=== PATIENT | male | born 1975 | race Caucasian/White ===

== ENCOUNTER 2022-01-23 15:09 | Inpatient (IN) ==
[2022-01-23 16:08] LABS: Basophils % 0.3 %; Eosinophils % 0.1 %; Hematocrit 32.3 % (37.5-50.1); Hemoglobin 10.9 g/dL (12.9-16.9); Immature Granulocytes % 1.3 % (0-4); Lymphocytes # 0.8 K/mcL (0.6-4.6); Lymphocytes % 5.4 %; Mean Corpuscular HGB Conc 33.7 g/dL (31.6-35.5); Mean Corpuscular Hemoglobin 30.5 pg (28.0-33.3); Mean Corpuscular Volume 90.5 fL (83.0-100.0); Mean Platelet Volume 8.5 fL (9.4-12.4); Monocytes # 0.8 K/mcL (0.0-1.3); Monocytes % 5.5 %; Neutrophils # 13.4 K/mcL (1.6-8.9); Platelet Count 325 K/mcL (140-400); Red Blood Count 3.57 M/mcL (4.19-5.50); Red Cell Distribution Width 13.2 % (11.5-14.5); Segmented Neutrophils % 87.4 %; White Blood Count 15.3 K/mcL (4.3-11.1)
[2022-01-23 16:31] LABS: BUN/Creatinine Ratio 18 (6-26); Blood Urea Nitrogen 23 mg/dL (6-20); C-Reactive Protein 113 mg/L (Less than 10); Calcium 8.8 mg/dL (8.6-10.3); Carbon Dioxide 24 mEq/L (23-29); Chloride 92 mEq/L (98-107); Glucose 102 mg/dL (70-105); Osmolality,Calculated 266 (280-300); Potassium 3.8 mEq/L (3.5-5.1); Sodium 126 mEq/L (136-145); eGFR For African Americans > 60 (> 60); eGFR For Non-African Americans > 60 (> 60)
[2022-01-23] MEDS ORDERED: Piperacillin/Tazobactam 3.375 GM in 0.9 % Sodium Chloride Mini Bag 100 ML IVPB ONE (18:01)
[2022-01-23] MEDS: 0.9 % Sodium Chloride 1,000 ML IVC SCH ×2 (18:14→22:09)
[2022-01-23 18:23] LABS: Alanine Aminotransferase 6 Units/L (7-52); Albumin 2.8 g/dL (3.5-5.7); Albumin/Globulin Ratio 0.5 (1.1-2.2); Alkaline Phosphatase 75 Units/L (34-104); Aspartate Amino Transferase 18 Units/L (13-39); Bilirubin,Direct 0.5 mg/dL (0.0-0.2); Bilirubin,Indirect 0.6 mg/dL (0.0-1.0); Bilirubin,Total 1.1 mg/dL (0.3-1.0); Globulin 5.6 g/dL (2.4-3.5); Lipase 14 Units/L (11-82); Total Protein 8.4 g/dL (6.4-8.9); Troponin I < 0.03 ng/mL (< 0.04)
[2022-01-23 18:33] LABS: Bilirubin,Urine Negative (Negative); Blood,Urine Large (Negative); Clarity,Urine Ex.Turbid (Clear); Color,Urine Dark-Yellow (Yellow); Glucose,Urine (UA) Normal (Normal); Granular Casts,Urine Moderate per lpf (None Seen); Ketones,Urine Trace mg/dL (Negative); Leukocyte Esterase,Urine Small (Negative); Mucus,Urine Few per lpf (None-Few); Nitrite,Urine Negative (Negative); Protein,Urine 70 mg/dL (Neg-Trace); Specific Gravity,Urine 1.018 (1.010-1.025); Squamous Epithelial Cell,Urine Few per hpf (None-Few); WBC,Urine 30-50 per hpf (0-3)
[2022-01-23 18:44] LABS: Amphetamine Screen,Urine Negative ng/mL (Cutoff=1000); Barbiturate Screen,Urine Negative ng/mL (Cutoff=200); Benzodiazepines Screen,Urine Negative ng/mL (Cutoff=200); Cannabinoid Screen,Urine Positive ng/mL (Cutoff = 50); Cocaine Screen,Urine Negative ng/mL (Cutoff= 300); Opiate Screen,Urine Negative ng/mL (Cutoff=300); Phencyclidine Screen,Urine Negative ng/mL (Cutoff=25)
[2022-01-23 18:46] LABS: Influenza A PCR Negative (Negative); Influenza B PCR Negative (Negative); Resp. Syncytial Virus PCR Negative (Negative); SARS-CoV-2 by PCR (In House) Negative (Negative)
[2022-01-23] MEDS ORDERED: Vancomycin 1,250 MG/262.5 ML IV.SOLN IVPB ONE (19:00)
[2022-01-23] MEDS ORDERED: Naloxone 0.4 MG/ML INJ IVP PRN (20:56)
[2022-01-23 21:45] LABS: BUN/Creatinine Ratio 18 (6-26); Blood Urea Nitrogen 23 mg/dL (6-20); Calcium 7.7 mg/dL (8.6-10.3); Carbon Dioxide 22 mEq/L (23-29); Chloride 97 mEq/L (98-107); Glucose 103 mg/dL (70-105); Osmolality,Calculated 268 (280-300); Potassium 3.8 mEq/L (3.5-5.1); Sodium 127 mEq/L (136-145); eGFR For African Americans > 60 (> 60); eGFR For Non-African Americans > 60 (> 60)
[2022-01-23] MEDS: Nicotine 21 MG PATCH.TD24 TD SCH (22:09)
[2022-01-24 03:22] LABS: Basophils % 0.3 %; Eosinophils % 0.4 %; Immature Granulocytes % 0.8 % (0-4); Lymphocytes # 1.1 K/mcL (0.6-4.6); Lymphocytes % 10.9 %; Mean Corpuscular Hemoglobin 30.5 pg (28.0-33.3); Mean Corpuscular Volume 92.5 fL (83.0-100.0); Mean Platelet Volume 8.8 fL (9.4-12.4); Monocytes # 0.6 K/mcL (0.0-1.3); Monocytes % 6.2 %; Neutrophils # 8.1 K/mcL (1.6-8.9); Platelet Count 252 K/mcL (140-400); Red Blood Count 2.92 M/mcL (4.19-5.50); Red Cell Distribution Width 13.2 % (11.5-14.5); Segmented Neutrophils % 81.4 %
[2022-01-24 03:37] LABS: Hemoglobin 8.9 g/dL (12.9-16.9)
[2022-01-24 03:41] LABS: Alanine Aminotransferase 5 Units/L (7-52); Albumin 1.9 g/dL (3.5-5.7); Alkaline Phosphatase 48 Units/L (34-104); Aspartate Amino Transferase 12 Units/L (13-39); BUN/Creatinine Ratio 20 (6-26); Bilirubin,Total 0.8 mg/dL (0.3-1.0); Blood Urea Nitrogen 21 mg/dL (6-20); Calcium 6.5 mg/dL (8.6-10.3); Carbon Dioxide 22 mEq/L (23-29); Chloride 107 mEq/L (98-107); Glucose 86 mg/dL (70-105); Magnesium 1.7 mg/dL (1.6-2.6); Osmolality,Calculated 280 (280-300); Potassium 3.1 mEq/L (3.5-5.1); Sodium 134 mEq/L (136-145); Total Protein 5.7 g/dL (6.4-8.9); eGFR For African Americans > 60 (> 60); eGFR For Non-African Americans > 60 (> 60)
[2022-01-24 03:42] LABS: Albumin/Globulin Ratio 0.5 (1.1-2.2); Globulin 3.8 g/dL (2.4-3.5)
[2022-01-24] MEDS: Piperacillin/Tazobactam 3.375 GM in 0.9 % Sodium Chloride Mini Bag 100 ML IVPB SCH ×3 (04:20→21:44)
[2022-01-24 05:39] LABS: Enterococcus faecalis by PCR Not Detected (Not Detect); Enterococcus faecium by PCR Not Detected (Not Detect); Staphylococcus aureus by PCR DETECTED (Not Detect); mecA/C & MREJ (MRSA) Gene Not Detected (Not Detect)
[2022-01-24 05:40] LABS: A.calcoaceticus-baumannii cplx Not Detected (Not Detect); Bacteroides fragilis by PCR Not Detected (Not Detect); Candida albicans by PCR Not Detected (Not Detect); Candida auris by PCR Not Detected (Not Detect); Candida glabrata by PCR Not Detected (Not Detect); Candida krusei by PCR Not Detected (Not Detect); Candida parapsilosis by PCR Not Detected (Not Detect); Candida tropicalis by PCR Not Detected (Not Detect); Crypto. neoformans/gattii PCR Not Detected (Not Detect); Enterobacter cloacae Cmplx PCR Not Detected (Not Detect); Enterobacterales by PCR Not Detected (Not Detect); Escherichia coli by PCR Not Detected (Not Detect); Klebs. pneumoniae group by PCR Not Detected (Not Detect); Klebsiella aerogenes by PCR Not Detected (Not Detect); Klebsiella oxytoca by PCR Not Detected (Not Detect); Proteus by PCR Not Detected (Not Detect); Pseudomonas aeruginosa by PCR Not Detected (Not Detect); Salmonella species by PCR Not Detected (Not Detect); Serratia marcescens by PCR Not Detected (Not Detect); Staph epidermidis by PCR Not Detected (Not Detect); Staph lugdunensis by PCR Not Detected (Not Detect); Stenotrophomonas maltophilia Not Detected (Not Detect); Streptococcus agalactiae(B)PCR Not Detected (Not Detect); Streptococcus by PCR Not Detected (Not Detect); Streptococcus pneumoniae PCR Not Detected (Not Detect); Streptococcus pyogenes (A) PCR Not Detected (Not Detect)
[2022-01-24] MEDS: Vancomycin 1,500 MG/265 ML IV.SOLN IVPB SCH ×2 (05:50→17:36)
[2022-01-24 06:12] LABS: Hepatitis B Surface Antigen Nonreactive (Nonreactive)
[2022-01-24 06:42] LABS: Hepatitis A Antibody IgM Nonreactive (Nonreactive); Hepatitis B Core IgM Nonreactive (Nonreactive)
[2022-01-24] MEDS: Nicotine 21 MG PATCH.TD24 TD SCH (07:39)
[2022-01-24] MEDS: 0.9 % Sodium Chloride 1,000 ML IVC SCH (08:20)
[2022-01-24 08:33] LABS: Hematocrit 24.8 % (37.5-50.1); Hemoglobin 8.2 g/dL (12.9-16.9)
[2022-01-24 08:38] LABS: Hepatitis C Virus Antibody Reactive (Nonreactive)
[2022-01-24 08:57] LABS: BUN/Creatinine Ratio 18 (6-26); Blood Urea Nitrogen 22 mg/dL (6-20); Calcium 7.7 mg/dL (8.6-10.3); Carbon Dioxide 25 mEq/L (23-29); Chloride 103 mEq/L (98-107); Glucose 92 mg/dL (70-105); Osmolality,Calculated 279 (280-300); Potassium 3.4 mEq/L (3.5-5.1); Sodium 133 mEq/L (136-145); eGFR For African Americans > 60 (> 60); eGFR For Non-African Americans > 60 (> 60)
[2022-01-24 15:32] LABS: Procalcitonin 1.04 ng/mL (0.00-0.15)
[2022-01-24] MEDS ORDERED: Prochlorperazine 10 MG/2 ML VIAL IVP PRN (22:20)
[2022-01-25 05:25] LABS: Basophils % 0.4 %; Eosinophils # 0.2 K/mcL (0.0-0.6); Eosinophils % 1.9 %; Hemoglobin 7.4 g/dL (12.9-16.9); Immature Granulocytes % 1.3 % (0-4); Lymphocytes # 1.7 K/mcL (0.6-4.6); Lymphocytes % 20.1 %; Mean Corpuscular HGB Conc 32.2 g/dL (31.6-35.5); Mean Corpuscular Hemoglobin 30.3 pg (28.0-33.3); Mean Corpuscular Volume 94.3 fL (83.0-100.0); Mean Platelet Volume 8.8 fL (9.4-12.4); Monocytes # 0.8 K/mcL (0.0-1.3); Monocytes % 9.2 %; Neutrophils # 5.6 K/mcL (1.6-8.9); Platelet Count 230 K/mcL (140-400); Red Blood Count 2.44 M/mcL (4.19-5.50); Red Cell Distribution Width 13.5 % (11.5-14.5); Segmented Neutrophils % 67.1 %; White Blood Count 8.4 K/mcL (4.3-11.1)
[2022-01-25] MEDS: Piperacillin/Tazobactam 3.375 GM in 0.9 % Sodium Chloride Mini Bag 100 ML IVPB SCH (05:50)
[2022-01-25] MEDS: Vancomycin 1,500 MG/265 ML IV.SOLN IVPB SCH (06:19)
[2022-01-25] MEDS: Nicotine 21 MG PATCH.TD24 TD SCH (08:29)
[2022-01-25 08:43] LABS: BUN/Creatinine Ratio 13 (6-26); Blood Urea Nitrogen 17 mg/dL (6-20); Calcium 7.6 mg/dL (8.6-10.3); Carbon Dioxide 24 mEq/L (23-29); Chloride 106 mEq/L (98-107); Glucose 94 mg/dL (70-105); Magnesium 1.9 mg/dL (1.6-2.6); Osmolality,Calculated 279 (280-300); Phosphorous 3.5 mg/dL (2.7-4.5); Sodium 134 mEq/L (136-145); eGFR For African Americans > 60 (> 60); eGFR For Non-African Americans 60 (> 60)
[2022-01-25] MEDS ORDERED: levoFLOXacin 500 MG/100 ML 500 MG/100 ML BAG IVPB SCH (10:00)
[2022-01-25 10:29] LABS: Hematocrit 22.3 % (37.5-50.1); Hemoglobin 7.3 g/dL (12.9-16.9)
[2022-01-25 10:50] LABS: % Iron Saturation 37 % (20-55); Iron 51 mcg/dL (65-175); Rheumatoid Factor < 10 IU/mL (Less than 14); Transferrin 98 mg/dL (203-362)
[2022-01-25 11:07] LABS: Ferritin 438 ng/mL (20-250)
[2022-01-25 11:13] LABS: Folate 9.7 ng/mL (3.0-16.0)
[2022-01-25 11:14] LABS: Vitamin B12 684 pg/mL (250-1100)
[2022-01-25] MEDS ORDERED: *HR* FentaNYL (PF) 100 MCG/2 ML VIAL ONE (13:21)
[2022-01-25] MEDS ORDERED: Ondansetron 4 MG/2 ML VIAL ONE (13:22)
[2022-01-25] MEDS ORDERED: Lidocaine -MPF 2% 5 ML VIAL ONE (13:22)
[2022-01-25] MEDS ORDERED: *HR* Midazolam HCl 2 MG/2 ML VIAL ONE (13:52)
[2022-01-25] MEDS: CeFAZolin 2,000 MG/120 ML BAG IVPB SCH (16:00)
[2022-01-26] MEDS: CeFAZolin 2,000 MG/120 ML BAG IVPB SCH ×3 (00:09→16:49)
[2022-01-26] MEDS: Acetaminophen 325 MG TABLET PO PRN (00:40)
[2022-01-26 03:57] LABS: Basophils % 0.3 %; Eosinophils # 0.3 K/mcL (0.0-0.6); Eosinophils % 3.7 %; Hematocrit 23.2 % (37.5-50.1); Hemoglobin 7.3 g/dL (12.9-16.9); Immature Granulocytes % 0.9 % (0-4); Lymphocytes # 1.8 K/mcL (0.6-4.6); Lymphocytes % 25.7 %; Mean Corpuscular HGB Conc 31.5 g/dL (31.6-35.5); Mean Corpuscular Volume 95.5 fL (83.0-100.0); Mean Platelet Volume 8.7 fL (9.4-12.4); Monocytes # 0.5 K/mcL (0.0-1.3); Monocytes % 7.3 %; Neutrophils # 4.4 K/mcL (1.6-8.9); Platelet Count 230 K/mcL (140-400); Red Blood Count 2.43 M/mcL (4.19-5.50); Red Cell Distribution Width 13.7 % (11.5-14.5); Segmented Neutrophils % 62.1 %
[2022-01-26 04:01] LABS: BUN/Creatinine Ratio 9 (6-26); Blood Urea Nitrogen 11 mg/dL (6-20); Calcium 7.8 mg/dL (8.6-10.3); Carbon Dioxide 25 mEq/L (23-29); Chloride 105 mEq/L (98-107); Glucose 92 mg/dL (70-105); Magnesium 1.9 mg/dL (1.6-2.6); Osmolality,Calculated 275 (280-300); Phosphorous 3.5 mg/dL (2.7-4.5); Potassium 4.3 mEq/L (3.5-5.1); Sodium 133 mEq/L (136-145); eGFR For African Americans > 60 (> 60); eGFR For Non-African Americans > 60 (> 60)
[2022-01-26] MEDS ORDERED: Perflutren Lipid Microsphere 1.3 ML in 0.9 % Sodium Chloride 8.7 ML IVP PRN (09:14)
[2022-01-26] MEDS ORDERED: *HR* LORazepam 2 MG/ML VIAL IVP ONE (10:25)
[2022-01-26] MEDS: Ondansetron 4 MG/2 ML VIAL IVP PRN (10:29)
[2022-01-26] MEDS: Nicotine 21 MG PATCH.TD24 TD SCH (10:31)
[2022-01-26] MEDS: cloNIDine HCL 0.1 MG TABLET PO SCH ×2 (10:36→20:45)
[2022-01-26] MEDS: 0.9 % Sodium Chloride 1,000 ML IVC SCH (12:35)
[2022-01-26 16:37] LABS: Amphetamine Screen,Urine Negative ng/mL (Cutoff=1000); Barbiturate Screen,Urine Negative ng/mL (Cutoff=200); Benzodiazepines Screen,Urine Positive ng/mL (Cutoff=200); Cannabinoid Screen,Urine Positive ng/mL (Cutoff = 50); Cocaine Screen,Urine Negative ng/mL (Cutoff= 300); Opiate Screen,Urine Negative ng/mL (Cutoff=300); Phencyclidine Screen,Urine Negative ng/mL (Cutoff=25)
[2022-01-27] MEDS: CeFAZolin 2,000 MG/120 ML BAG IVPB SCH ×4 (00:30→23:11)
[2022-01-27] MEDS: cloNIDine HCL 0.1 MG TABLET PO SCH ×2 (09:40→21:16)
[2022-01-27] MEDS: Nicotine 21 MG PATCH.TD24 TD SCH (09:41)
[2022-01-27] MEDS ORDERED: Famotidine 20 MG TABLET PO PRN (15:42)
[2022-01-28] MEDS: *HR* Enoxaparin 40 MG/0.4 ML SYRINGE SQ SCH (05:19)
[2022-01-28] MEDS: Nicotine 21 MG PATCH.TD24 TD SCH (08:14)
[2022-01-28] MEDS: polyethylene glycoL 3350 17 GM POWD.PACK PO SCH (08:14)
[2022-01-28] MEDS: cloNIDine HCL 0.1 MG TABLET PO SCH ×2 (08:14→20:05)
[2022-01-28] MEDS: Sennosides/Docusate Sodium TABLET PO SCH ×2 (08:14→20:04)
[2022-01-28] MEDS: CeFAZolin 2,000 MG/120 ML BAG IVPB SCH ×2 (08:15→15:51)
[2022-01-28] MEDS: Ondansetron 4 MG/2 ML VIAL IVP PRN (16:27)
[2022-01-29] MEDS: Ondansetron 4 MG/2 ML VIAL IVP PRN ×2 (04:37→23:42)
[2022-01-29] MEDS: *HR* Enoxaparin 40 MG/0.4 ML SYRINGE SQ SCH (05:16)
[2022-01-29] MEDS: Nicotine 21 MG PATCH.TD24 TD SCH (08:29)
[2022-01-29] MEDS: CeFAZolin 2,000 MG/120 ML BAG IVPB SCH ×3 (08:29→16:27)
[2022-01-29] MEDS: cloNIDine HCL 0.1 MG TABLET PO SCH ×2 (08:30→21:47)
[2022-01-29] MEDS: Sennosides/Docusate Sodium TABLET PO SCH ×2 (08:31→21:47)
[2022-01-29] MEDS: polyethylene glycoL 3350 17 GM POWD.PACK PO SCH (08:31)
[2022-01-29 10:07] LABS: Hematocrit 23.6 % (37.5-50.1); Hemoglobin 7.6 g/dL (12.9-16.9); Mean Corpuscular HGB Conc 32.2 g/dL (31.6-35.5); Mean Corpuscular Hemoglobin 29.8 pg (28.0-33.3); Mean Corpuscular Volume 92.5 fL (83.0-100.0); Mean Platelet Volume 8.6 fL (9.4-12.4); Platelet Count 289 K/mcL (140-400); Red Blood Count 2.55 M/mcL (4.19-5.50); Red Cell Distribution Width 13.6 % (11.5-14.5); White Blood Count 11.1 K/mcL (4.3-11.1)
[2022-01-29 10:26] LABS: BUN/Creatinine Ratio 9 (6-26); Blood Urea Nitrogen 11 mg/dL (6-20); Carbon Dioxide 24 mEq/L (23-29); Chloride 105 mEq/L (98-107); Glucose 82 mg/dL (70-105); Osmolality,Calculated 278 (280-300); Potassium 3.7 mEq/L (3.5-5.1); Sodium 135 mEq/L (136-145); eGFR For African Americans > 60 (> 60); eGFR For Non-African Americans > 60 (> 60)
[2022-01-29] MEDS: Melatonin 3 MG TABLET PO PRN (21:48)
[2022-01-30] MEDS ORDERED: Prochlorperazine 10 MG/2 ML VIAL IVP ONE (00:08)
[2022-01-30] MEDS: CeFAZolin 2,000 MG/120 ML BAG IVPB SCH ×4 (00:31→23:32)
[2022-01-30] MEDS ORDERED: traZODone 50 MG TABLET PO ONE (02:40)
[2022-01-30] MEDS: *HR* Enoxaparin 40 MG/0.4 ML SYRINGE SQ SCH (05:06)
[2022-01-30] MEDS: polyethylene glycoL 3350 17 GM POWD.PACK PO SCH (08:05)
[2022-01-30] MEDS: Sennosides/Docusate Sodium TABLET PO SCH ×2 (08:05→20:03)
[2022-01-30] MEDS: Nicotine 21 MG PATCH.TD24 TD SCH (08:08)
[2022-01-30] MEDS: cloNIDine HCL 0.1 MG TABLET PO SCH ×3 (08:08→20:03)
[2022-01-30] MEDS: Acetaminophen 325 MG TABLET PO PRN (12:16)
[2022-01-30] MEDS: Melatonin 3 MG TABLET PO PRN (23:35)
[2022-01-30] MEDS: Ondansetron 4 MG/2 ML VIAL IVP PRN (23:36)
[2022-01-31] MEDS ORDERED: Prochlorperazine 10 MG/2 ML VIAL IVP ONE (02:48)
[2022-01-31] MEDS ORDERED: *HR* LORazepam 2 MG/ML VIAL IVP ONE (04:51)
[2022-01-31] MEDS: *HR* Enoxaparin 40 MG/0.4 ML SYRINGE SQ SCH (06:06)
[2022-01-31] MEDS: CeFAZolin 2,000 MG/120 ML BAG IVPB SCH ×3 (08:44→23:49)
[2022-01-31] MEDS: Nicotine 21 MG PATCH.TD24 TD SCH (08:44)
[2022-01-31] MEDS ORDERED: Lidocaine -MPF 2% 5 ML VIAL SQ ONE (11:28)
[2022-01-31] MEDS ORDERED: Ondansetron 4 MG/2 ML VIAL IVP ONE (11:28)
[2022-01-31] MEDS ORDERED: *HR* Propofol 500 MG/50 ML BOTTLE IVP ONE (11:28)
[2022-01-31] MEDS ORDERED: Lidocaine Viscous Oral Soln 15 ML SOLUTION MM PRN (12:15)
[2022-01-31] MEDS ORDERED: 0.9 % Sodium Chloride 500 ML IVC ONE (12:16)
[2022-01-31] MEDS: polyethylene glycoL 3350 17 GM POWD.PACK PO SCH (14:45)
[2022-01-31] MEDS: Sennosides/Docusate Sodium TABLET PO SCH ×2 (14:45→20:09)
[2022-01-31] MEDS: amLODIPine 5 MG TABLET PO SCH (14:45)
[2022-01-31] MEDS: Acetaminophen 325 MG TABLET PO PRN (23:45)
[2022-01-31] MEDS: Melatonin 3 MG TABLET PO PRN (23:46)
[2022-02-01] MEDS: *HR* Enoxaparin 40 MG/0.4 ML SYRINGE SQ SCH (05:02)
[2022-02-01] MEDS: Ondansetron 4 MG/2 ML VIAL IVP PRN (05:06)
[2022-02-01 05:58] LABS: Hematocrit 25.8 % (37.5-50.1); Hemoglobin 8.4 g/dL (12.9-16.9); Mean Corpuscular HGB Conc 32.6 g/dL (31.6-35.5); Mean Corpuscular Hemoglobin 30.2 pg (28.0-33.3); Mean Corpuscular Volume 92.8 fL (83.0-100.0); Mean Platelet Volume 8.7 fL (9.4-12.4); Platelet Count 415 K/mcL (140-400); Red Blood Count 2.78 M/mcL (4.19-5.50); Red Cell Distribution Width 14.9 % (11.5-14.5); White Blood Count 8.7 K/mcL (4.3-11.1)
[2022-02-01 06:20] LABS: BUN/Creatinine Ratio 10 (6-26); Blood Urea Nitrogen 10 mg/dL (6-20); Calcium 8.4 mg/dL (8.6-10.3); Carbon Dioxide 23 mEq/L (23-29); Chloride 102 mEq/L (98-107); Glucose 82 mg/dL (70-105); Magnesium 1.7 mg/dL (1.6-2.6); Osmolality,Calculated 280 (280-300); Potassium 3.4 mEq/L (3.5-5.1); Sodium 136 mEq/L (136-145); eGFR For African Americans > 60 (> 60); eGFR For Non-African Americans > 60 (> 60)
[2022-02-01] MEDS: CeFAZolin 2,000 MG/120 ML BAG IVPB SCH ×2 (07:51→15:26)
[2022-02-01] MEDS: Nicotine 21 MG PATCH.TD24 TD SCH (07:52)
[2022-02-01] MEDS ORDERED: 0.9 % Sodium Chloride 500 ML IVC ONE (12:23)
[2022-02-01] MEDS: amLODIPine 5 MG TABLET PO SCH (14:27)
[2022-02-01] MEDS: Sennosides/Docusate Sodium TABLET PO SCH ×2 (14:28→21:15)
[2022-02-01] MEDS: polyethylene glycoL 3350 17 GM POWD.PACK PO SCH (14:28)
[2022-02-01] MEDS ORDERED: Iopamidol - 370 500 ML MLS IVP ONE (14:39)
[2022-02-01 15:50] LABS: BUN/Creatinine Ratio 11 (6-26); Blood Urea Nitrogen 9 mg/dL (6-20); Calcium 8.4 mg/dL (8.6-10.3); Carbon Dioxide 23 mEq/L (23-29); Chloride 104 mEq/L (98-107); Glucose 80 mg/dL (70-105); Osmolality,Calculated 284 (280-300); Potassium 3.5 mEq/L (3.5-5.1); Sodium 138 mEq/L (136-145); eGFR For African Americans > 60 (> 60); eGFR For Non-African Americans > 60 (> 60)
[2022-02-01 15:51] LABS: INR 1.4; Prothrombin Time 15.1 Seconds (9.4-12.1)
[2022-02-01 15:52] LABS: Basophils % 0.3 %; Eosinophils % 0.4 %; Hematocrit 26.5 % (37.5-50.1); Hemoglobin 8.5 g/dL (12.9-16.9); Immature Granulocytes % 0.6 % (0-4); Lymphocytes # 1.5 K/mcL (0.6-4.6); Lymphocytes % 18.6 %; Mean Corpuscular HGB Conc 32.1 g/dL (31.6-35.5); Mean Corpuscular Volume 93.6 fL (83.0-100.0); Mean Platelet Volume 8.4 fL (9.4-12.4); Monocytes # 0.6 K/mcL (0.0-1.3); Monocytes % 7.8 %; Neutrophils # 5.8 K/mcL (1.6-8.9); Platelet Count 414 K/mcL (140-400); Red Blood Count 2.83 M/mcL (4.19-5.50); Red Cell Distribution Width 15.3 % (11.5-14.5); Segmented Neutrophils % 72.3 %
[2022-02-01 15:53] LABS: Activated Partial Thrombo Time 31.6 Seconds (26.0-36.0)
[2022-02-01] MEDS ORDERED: Vancomycin 1,250 MG/262.5 ML IV.SOLN IVPB ONE (16:00)
[2022-02-01 16:16] LABS: Estimated Average Glucose 108 mg/dl; Hemoglobin A1C 5.4 %
[2022-02-01] MEDS: Chlorhexidine Rinse 15 ML MOUTHWASH MM SCH (21:15)
[2022-02-01] MEDS: Melatonin 3 MG TABLET PO PRN (21:16)
[2022-02-02] MEDS: CeFAZolin 2,000 MG/120 ML BAG IVPB SCH ×4 (00:06→20:01)
[2022-02-02] MEDS: *HR* Enoxaparin 40 MG/0.4 ML SYRINGE SQ SCH (05:11)
[2022-02-02] MEDS ORDERED: Aspirin 81 MG TAB.CHEW PO ONE (06:00)
[2022-02-02] MEDS ORDERED: DOBUTamine 1,000 MG/250 ML BAG ONE (06:32)
[2022-02-02] MEDS ORDERED: *HR* Midazolam HCl 5 MG/5 ML VIAL IVP ONE ×2 (06:33→09:47)
[2022-02-02] MEDS ORDERED: *HR* FentaNYL (PF) 1,000 MCG/20 ML VIAL ONE (06:34)
[2022-02-02] MEDS ORDERED: *HR* Propofol 200 MG/20 ML VIAL IVP ONE (06:34)
[2022-02-02] MEDS ORDERED: *HR* Magnesium Sulfate 1 GM/2 ML VIAL ONE (06:35)
[2022-02-02] MEDS ORDERED: Lidocaine 2% Syringe 100 MG/5 ML ONE (06:35)
[2022-02-02] MEDS ORDERED: Famotidine 20 MG/2 ML VIAL ONE (06:35)
[2022-02-02] MEDS ORDERED: *HR* Rocuronium Bromide 50 MG/5 ML VIAL ONE ×5 (06:35→11:53)
[2022-02-02] MEDS ORDERED: Heparin 1,000 UNITS/500 mL 500 ML ONE (06:37)
[2022-02-02] MEDS ORDERED: Tranexamic Acid 1,000 MG/10 ML VIAL ONE (06:37)
[2022-02-02] MEDS: Chlorhexidine Rinse 15 ML MOUTHWASH MM SCH ×2 (06:42→20:00)
[2022-02-02] MEDS ORDERED: Dexmedetomidine HCl 400 MCG/100 ML MLS IVC ONE ×2 (06:50→16:18)
[2022-02-02] MEDS ORDERED: Heparin 15,000 UNIT in 0.9 % Sodium Chloride 500 ML IV ONE ×2 (07:00→15:47)
[2022-02-02] MEDS ORDERED: del Nido Cardioplegia Solution PF ONE ×2 (07:00)
[2022-02-02] MEDS ORDERED: Norepinephrine 4 MG in 0.9 % Sodium Chloride 250 ML IVC PRN (07:00)
[2022-02-02] MEDS ORDERED: Vancomycin 1,500 MG/265 ML IV.SOLN IVPB ONE (07:00)
[2022-02-02] MEDS ORDERED: Buckersberg's Blood Cardioplegia PF ONE (07:00)
[2022-02-02 08:03] LABS: ABG Base Excess 0 mEq/L (-2 to 3); ABG Chloride 104 mEq/L (98-107); ABG Glucose 80 mg/dL (60-95); ABG HCO3 24 mEq/L (21-27); ABG Ionized Calcium 1.17 mmol/L (1.15-1.35); ABG Oxygen Saturation 100 % (95-98); ABG PCO2 38 mmHg (35-45); ABG PH 7.42 pH Units (7.32-7.45); ABG PO2 390 mmHg (85-104); ABG TCO2 26 mEq/L (20-26)
[2022-02-02] MEDS ORDERED: Potassium Chloride 40 MEQ/200 ML BAG IVPB PRN ×2 (09:41→15:47)
[2022-02-02] MEDS ORDERED: Insulin Regular, Human 100 UNIT/ML IV PRN (09:41)
[2022-02-02] MEDS ORDERED: *HR* Dextrose 50 % in Water (Syg) 50 ML SYRINGE IVP PRN ×2 (09:41→15:47)
[2022-02-02] MEDS ORDERED: Albuterol 2.5 MG/3 ML NEBULIZER IH PRN ×2 (09:41→15:47)
[2022-02-02] MEDS ORDERED: Albumin Human 5% 12.5 GM/250 ML IV.SOLN IVPB PRN (09:41)
[2022-02-02] MEDS ORDERED: Ipratropium/Albuterol Neb 3 ML IH PRN ×2 (09:41→15:47)
[2022-02-02] MEDS ORDERED: *HR* FentaNYL (PF) 250 MCG/5 ML VIAL ONE ×2 (09:43→11:46)
[2022-02-02 09:45] LABS: ABG Base Excess -1 mEq/L (-2 to 3); ABG Chloride 104 mEq/L (98-107); ABG Glucose 89 mg/dL (60-95); ABG HCO3 23 mEq/L (21-27); ABG Ionized Calcium 1.12 mmol/L (1.15-1.35); ABG Oxygen Saturation 100 % (95-98); ABG PCO2 37 mmHg (35-45); ABG PH 7.41 pH Units (7.32-7.45); ABG PO2 268 mmHg (85-104); ABG TCO2 25 mEq/L (20-26)
[2022-02-02 10:39] LABS: ABG Base Excess 0 mEq/L (-2 to 3); ABG Chloride 103 mEq/L (98-107); ABG Glucose 104 mg/dL (60-95); ABG HCO3 24 mEq/L (21-27); ABG Ionized Calcium 1.06 mmol/L (1.15-1.35); ABG PCO2 38 mmHg (35-45); ABG PH 7.42 pH Units (7.32-7.45); ABG PO2 > 630 mmHg (85-104); ABG TCO2 25 mEq/L (20-26)
[2022-02-02 11:16] LABS: ABG Base Excess 0 mEq/L (-2 to 3); ABG Chloride 103 mEq/L (98-107); ABG Glucose 151 mg/dL (60-95); ABG HCO3 23 mEq/L (21-27); ABG Ionized Calcium 0.99 mmol/L (1.15-1.35); ABG Oxygen Saturation 100 % (95-98); ABG PCO2 27 mmHg (35-45); ABG PH 7.53 pH Units (7.32-7.45); ABG PO2 558 mmHg (85-104); ABG TCO2 24 mEq/L (20-26)
[2022-02-02 11:29] LABS: ABG Base Excess 0 mEq/L (-2 to 3); ABG Chloride 103 mEq/L (98-107); ABG Glucose 162 mg/dL (60-95); ABG HCO3 23 mEq/L (21-27); ABG Ionized Calcium 1.03 mmol/L (1.15-1.35); ABG Oxygen Saturation 100 % (95-98); ABG PCO2 30 mmHg (35-45); ABG PO2 603 mmHg (85-104); ABG TCO2 24 mEq/L (20-26)
[2022-02-02 11:42] LABS: ABG Base Excess -1 mEq/L (-2 to 3); ABG Chloride 103 mEq/L (98-107); ABG Glucose 174 mg/dL (60-95); ABG HCO3 22 mEq/L (21-27); ABG Ionized Calcium 1.06 mmol/L (1.15-1.35); ABG Oxygen Saturation 100 % (95-98); ABG PCO2 31 mmHg (35-45); ABG PH 7.47 pH Units (7.32-7.45); ABG PO2 535 mmHg (85-104); ABG TCO2 23 mEq/L (20-26)
[2022-02-02 11:47] LABS: ABG Base Excess 2 mEq/L (-2 to 3); ABG Chloride 103 mEq/L (98-107); ABG Glucose 144 mg/dL (60-95); ABG HCO3 24 mEq/L (21-27); ABG Ionized Calcium 0.95 mmol/L (1.15-1.35); ABG PCO2 26 mmHg (35-45); ABG PH 7.57 pH Units (7.32-7.45); ABG PO2 > 630 mmHg (85-104); ABG TCO2 25 mEq/L (20-26)
[2022-02-02] MEDS ORDERED: Protamine Sulfate 250 MG/25 ML VIAL IVP ONE (11:58)
[2022-02-02] MEDS ORDERED: Protamine Sulfate 50 MG/5 ML VIAL IVP ONE ×2 (11:58→13:51)
[2022-02-02] MEDS ORDERED: Calcium Gluconate 1,000 MG/10 ML VIAL ONE (11:59)
[2022-02-02] MEDS ORDERED: Ketorolac 30 MG/ML VIAL IVP SCH (12:00)
[2022-02-02 12:26] LABS: ABG Base Excess -2 mEq/L (-2 to 3); ABG Chloride 105 mEq/L (98-107); ABG Glucose 183 mg/dL (60-95); ABG HCO3 24 mEq/L (21-27); ABG Oxygen Saturation 100 % (95-98); ABG PCO2 41 mmHg (35-45); ABG PH 7.37 pH Units (7.32-7.45); ABG PO2 490 mmHg (85-104); ABG TCO2 25 mEq/L (20-26)
[2022-02-02] MEDS ORDERED: ceFAZolin 1,000 MG in 0.9 % Sodium Chloride 10 ML IVP ONE (12:29)
[2022-02-02 13:00] LABS: ABG Base Excess -2 mEq/L (-2 to 3); ABG Chloride 104 mEq/L (98-107); ABG Glucose 197 mg/dL (60-95); ABG HCO3 23 mEq/L (21-27); ABG Ionized Calcium 1.04 mmol/L (1.15-1.35); ABG Oxygen Saturation 100 % (95-98); ABG PCO2 38 mmHg (35-45); ABG PH 7.39 pH Units (7.32-7.45); ABG PO2 475 mmHg (85-104); ABG TCO2 24 mEq/L (20-26)
[2022-02-02 14:02] LABS: ABG Base Excess -5 mEq/L (-2 to 3); ABG Chloride 105 mEq/L (98-107); ABG Glucose 218 mg/dL (60-95); ABG HCO3 20 mEq/L (21-27); ABG Ionized Calcium 0.56 mmol/L (1.15-1.35); ABG Oxygen Saturation 98 % (95-98); ABG PCO2 37 mmHg (35-45); ABG PH 7.35 pH Units (7.32-7.45); ABG PO2 115 mmHg (85-104); ABG TCO2 21 mEq/L (20-26)
[2022-02-02] MEDS ORDERED: Tranexamic Acid 1,000 MG/10 ML VIAL IR ONE (14:04)
[2022-02-02] MEDS ORDERED: *HR* Magnesium Sulfate 2 GM/50 ML PIGGYBACK IVPB ONE (14:04)
[2022-02-02] MEDS ORDERED: *HR* Phenylephrine 10 MG/ML VIAL IVC ONE (14:04)
[2022-02-02] MEDS ORDERED: Albumin Human 25% 25 GM/100 ML IV.SOLN IVPB ONE (14:04)
[2022-02-02] MEDS ORDERED: Heparin 1,000 UNITS/500 mL IV.SOLN IR ONE (14:04)
[2022-02-02] MEDS ORDERED: Mannitol 25% vial 12.5 GM/50 ML VIAL IVPB ONE (14:04)
[2022-02-02] MEDS ORDERED: *HR* Heparin 10,000 UNIT/10 ML VIAL IR ONE (14:04)
[2022-02-02] MEDS ORDERED: Lidocaine 2% Syringe 100 MG/5 ML IVP ONE (14:04)
[2022-02-02 14:07] LABS: ABG Base Excess -4 mEq/L (-2 to 3); ABG Chloride 105 mEq/L (98-107); ABG Glucose 197 mg/dL (60-95); ABG HCO3 21 mEq/L (21-27); ABG Ionized Calcium 0.62 mmol/L (1.15-1.35); ABG Oxygen Saturation 99 % (95-98); ABG PCO2 36 mmHg (35-45); ABG PH 7.37 pH Units (7.32-7.45); ABG PO2 130 mmHg (85-104); ABG TCO2 22 mEq/L (20-26)
[2022-02-02] MEDS ORDERED: 0.9 % Sodium Chloride 1,000 ML ONE (14:25)
[2022-02-02 14:34] LABS: ABG Base Excess -3 mEq/L (-2 to 3); ABG HCO3 23 mEq/L (21-27); ABG Oxygen Saturation 98 % (95-98); ABG PCO2 40 mmHg (35-45); ABG PH 7.36 pH Units (7.32-7.45); ABG PO2 109 mmHg (85-104); ABG TCO2 24 mEq/L (20-26); Blood Gas Modality AF; Blood Gas VT 500 cc
[2022-02-02 14:40] LABS: Mean Corpuscular HGB Conc 32.6 g/dL (31.6-35.5)
[2022-02-02 14:41] LABS: Hematocrit 18.1 % (37.5-50.1); Mean Corpuscular Hemoglobin 30.9 pg (28.0-33.3); Mean Corpuscular Volume 94.8 fL (83.0-100.0); Mean Platelet Volume 8.5 fL (9.4-12.4); Platelet Count 118 K/mcL (140-400); Red Blood Count 1.91 M/mcL (4.19-5.50); Red Cell Distribution Width 14.8 % (11.5-14.5)
[2022-02-02 14:45] LABS: White Blood Count 33.6 K/mcL (4.3-11.1)
[2022-02-02 14:46] LABS: Hemoglobin 5.9 g/dL (12.9-16.9)
[2022-02-02] MEDS ORDERED: niCARdipine 20 MG/200 ML MLS IVC ONE (14:48)
[2022-02-02 14:51] LABS: INR 1.7; Prothrombin Time 18.5 Seconds (9.4-12.1)
[2022-02-02 14:53] LABS: Activated Partial Thrombo Time 34.3 Seconds (26.0-36.0)
[2022-02-02] MEDS ORDERED: niCARdipine 20 MG/200 ML MLS IVC SCH (15:00)
[2022-02-02 15:02] LABS: BUN/Creatinine Ratio 15 (6-26); Blood Urea Nitrogen 11 mg/dL (6-20); Calcium 9.7 mg/dL (8.6-10.3); Carbon Dioxide 25 mEq/L (23-29); Chloride 105 mEq/L (98-107); Glucose 200 mg/dL (70-105); Magnesium 2.5 mg/dL (1.6-2.6); Osmolality,Calculated 295 (280-300); Sodium 140 mEq/L (136-145); eGFR For African Americans > 60 (> 60); eGFR For Non-African Americans > 60 (> 60)
[2022-02-02 15:08] LABS: Lymphocytes # 0.7 K/mcL (0.6-4.6); Neutrophils # 30.9 K/mcL (1.6-8.9)
[2022-02-02 15:09] LABS: Hypochromasia Present (Not Present); Poikilocytosis 1+ (Not Present)
[2022-02-02 15:10] LABS: Platelet Estimate Normal (Normal)
[2022-02-02] MEDS: Vasopressin 40 UNIT in D5% in Water 100 ML IVC SCH ×3 (15:15→18:33)
[2022-02-02] MEDS: Sennosides/Docusate Sodium TABLET PO SCH ×2 (15:17→20:00)
[2022-02-02] MEDS: amLODIPine 5 MG TABLET PO SCH (15:17)
[2022-02-02] MEDS: polyethylene glycoL 3350 17 GM POWD.PACK PO SCH (15:17)
[2022-02-02] MEDS: Nicotine 21 MG PATCH.TD24 TD SCH (15:20)
[2022-02-02] MEDS ORDERED: Dexmedetomidine HCl 400 MCG/100 ML MLS IVC SCH (15:30)
[2022-02-02] MEDS ORDERED: *HR* FentaNYL (PF) 100 MCG/2 ML VIAL ONE (15:41)
[2022-02-02] MEDS ORDERED: Prochlorperazine 10 MG/2 ML VIAL IVP PRN (15:47)
[2022-02-02] MEDS ORDERED: Famotidine 20 MG TABLET PO PRN (15:47)
[2022-02-02] MEDS ORDERED: Naloxone 0.4 MG/ML INJ IVP PRN (15:47)
[2022-02-02] MEDS ORDERED: Norepinephrine 4 MG/254 ML IV.SOLN IVC PRN (15:47)
[2022-02-02] MEDS ORDERED: Mannitol 25% vial 3.25 GM, Magnesium Sulfate 2 GM, Sodium Bicarbonate 13 MEQ, Potassium... PF ONE ×2 (15:47)
[2022-02-02] MEDS ORDERED: Sodium Bicarbonate 10 MEQ, Potassium Chloride 80 MEQ in CARDIOPLEGIC SOLUTION NO.1 1,00... PF ONE (15:47)
[2022-02-02] MEDS: Insulin Regular, Human 100 UNIT/ML IV PRN ×4 (16:00→17:35)
[2022-02-02] MEDS: FentaNYL (PF) 1,000 MCG/100 ML IV.SOLN IVC SCH (16:18)
[2022-02-02] MEDS: Albumin Human 5% 12.5 GM/250 ML IV.SOLN IVPB PRN ×4 (16:25→21:02)
[2022-02-02] MEDS ORDERED: Perflutren Lipid Microsphere 1.3 ML in 0.9 % Sodium Chloride 8.7 ML IVP PRN (16:30)
[2022-02-02] MEDS: Ketorolac 30 MG/ML VIAL IVP SCH ×2 (16:51→23:01)
[2022-02-02] MEDS: Furosemide 20 MG/2 ML VIAL IVP SCH (16:52)
[2022-02-02] MEDS: Midazolam HCl 50 MG/50 ML IV.SOLN IVC SCH ×2 (16:52→23:00)
[2022-02-02] MEDS ORDERED: Furosemide 20 MG/2 ML VIAL IVP SCH (17:00)
[2022-02-02] MEDS: Pantoprazole 40 MG VIAL IVP SCH (17:18)
[2022-02-02 17:51] LABS: ABG Base Excess -1 mEq/L (-2 to 3); ABG HCO3 24 mEq/L (21-27); ABG Oxygen Saturation 99 % (95-98); ABG PCO2 45 mmHg (35-45); ABG PH 7.35 pH Units (7.32-7.45); ABG PO2 156 mmHg (85-104); ABG TCO2 26 mEq/L (20-26); Blood Gas Modality AF; Blood Gas VT 500 cc
[2022-02-02] MEDS: Ringers Solution, Lactated 1,000 ML IVC SCH (17:57)
[2022-02-02 18:09] LABS: Hematocrit 27.8 % (37.5-50.1)
[2022-02-02 18:10] LABS: Hemoglobin 9.2 g/dL (12.9-16.9)
[2022-02-02] MEDS: Norepinephrine 4 MG/254 ML IV.SOLN IVC SCH (20:06)
[2022-02-02] MEDS ORDERED: Chlorhexidine Rinse 15 ML MOUTHWASH MM SCH (21:00)
[2022-02-02 22:16] LABS: Hematocrit 17.1 % (37.5-50.1)
[2022-02-02 22:23] LABS: Hemoglobin 5.9 g/dL (12.9-16.9)
[2022-02-02 22:25] LABS: ABG Base Excess 2 mEq/L (-2 to 3); ABG HCO3 26 mEq/L (21-27); ABG Oxygen Saturation 99 % (95-98); ABG PCO2 36 mmHg (35-45); ABG PH 7.47 pH Units (7.32-7.45); ABG PO2 114 mmHg (85-104); ABG TCO2 27 mEq/L (20-26); Blood Gas VT 500 cc
[2022-02-03] MEDS: FentaNYL (PF) 1,000 MCG/100 ML IV.SOLN IVC SCH ×4 (00:03→19:11)
[2022-02-03] MEDS: Ringers Solution, Lactated 1,000 ML IVC SCH ×2 (00:03→06:01)
[2022-02-03 02:37] LABS: ABG Base Excess 1 mEq/L (-2 to 3); ABG HCO3 25 mEq/L (21-27); ABG Oxygen Saturation 99 % (95-98); ABG PCO2 34 mmHg (35-45); ABG PH 7.46 pH Units (7.32-7.45); ABG PO2 106 mmHg (85-104); ABG TCO2 26 mEq/L (20-26); Blood Gas VT 500 cc
[2022-02-03 03:33] LABS: Basophils % 0.2 %; Mean Platelet Volume 9.7 fL (9.4-12.4)
[2022-02-03 03:35] LABS: Hematocrit 22.8 % (37.5-50.1); Hemoglobin 7.9 g/dL (12.9-16.9); Immature Granulocytes % 1.3 % (0-4); Immature Platelets 5.3 % (1.1-6.1); Lymphocytes # 1.1 K/mcL (0.6-4.6); Lymphocytes % 10.6 %; Mean Corpuscular HGB Conc 34.6 g/dL (31.6-35.5); Mean Corpuscular Hemoglobin 30.4 pg (28.0-33.3); Mean Corpuscular Volume 87.7 fL (83.0-100.0); Monocytes # 0.8 K/mcL (0.0-1.3); Monocytes % 7.4 %; Neutrophils # 8.4 K/mcL (1.6-8.9); Platelet Count 120 K/mcL (140-400); Red Cell Distribution Width 14.9 % (11.5-14.5); Segmented Neutrophils % 80.5 %; White Blood Count 10.4 K/mcL (4.3-11.1)
[2022-02-03 03:36] LABS: INR 1.5; Prothrombin Time 16.9 Seconds (9.4-12.1)
[2022-02-03 03:39] LABS: Activated Partial Thrombo Time 31.1 Seconds (26.0-36.0)
[2022-02-03 03:40] LABS: BUN/Creatinine Ratio 19 (6-26); Blood Urea Nitrogen 17 mg/dL (6-20); Calcium 8.3 mg/dL (8.6-10.3); Carbon Dioxide 26 mEq/L (23-29); Chloride 107 mEq/L (98-107); Glucose 109 mg/dL (70-105); Osmolality,Calculated 294 (280-300); Potassium 3.9 mEq/L (3.5-5.1); Sodium 141 mEq/L (136-145); eGFR For African Americans > 60 (> 60); eGFR For Non-African Americans > 60 (> 60)
[2022-02-03] MEDS: CeFAZolin 2,000 MG/120 ML BAG IVPB SCH ×3 (04:00→20:20)
[2022-02-03] MEDS: Ketorolac 30 MG/ML VIAL IVP SCH ×4 (05:00→23:10)
[2022-02-03] MEDS: Midazolam HCl 50 MG/50 ML IV.SOLN IVC SCH ×4 (05:00→21:07)
[2022-02-03] MEDS ORDERED: *HR* Enoxaparin 40 MG/0.4 ML SYRINGE SQ SCH (06:00)
[2022-02-03] MEDS: Chlorhexidine Rinse 15 ML MOUTHWASH MM SCH ×2 (07:56→20:19)
[2022-02-03] MEDS: Pantoprazole 40 MG VIAL IVP SCH (07:56)
[2022-02-03] MEDS: Furosemide 20 MG/2 ML VIAL IVP SCH ×2 (07:56→18:01)
[2022-02-03] MEDS: Nicotine 21 MG PATCH.TD24 TD SCH (07:57)
[2022-02-03] MEDS: polyethylene glycoL 3350 17 GM POWD.PACK PO SCH (07:57)
[2022-02-03] MEDS: Sennosides/Docusate Sodium TABLET PO SCH ×2 (07:58→20:19)
[2022-02-03] MEDS: amLODIPine 5 MG TABLET PO SCH (07:58)
[2022-02-03] MEDS ORDERED: atenoloL 25 MG TABLET PO SCH (09:00)
[2022-02-03 09:27] LABS: Alanine Aminotransferase 6 Units/L (7-52); Albumin 3.2 g/dL (3.5-5.7); Alkaline Phosphatase 28 Units/L (34-104); Aspartate Amino Transferase 25 Units/L (13-39); Bilirubin,Total 0.8 mg/dL (0.3-1.0); Globulin 1.6 g/dL (2.4-3.5); Total Protein 4.8 g/dL (6.4-8.9)
[2022-02-03] MEDS: Ondansetron 4 MG/2 ML VIAL IVP PRN (10:27)
[2022-02-03 10:38] LABS: Hemoglobin 7.4 g/dL (12.9-16.9); Mean Corpuscular Hemoglobin 30.2 pg (28.0-33.3); Red Blood Count 2.45 M/mcL (4.19-5.50)
[2022-02-03 10:40] LABS: Hematocrit 21.7 % (37.5-50.1); Immature Platelets 5.4 % (1.1-6.1); Mean Corpuscular HGB Conc 34.1 g/dL (31.6-35.5); Mean Corpuscular Volume 88.6 fL (83.0-100.0); Red Cell Distribution Width 15.7 % (11.5-14.5)
[2022-02-03] MEDS ORDERED: 0.9 % Sodium Chloride 1,000 ML ONE ×2 (10:50→19:02)
[2022-02-03 11:34] LABS: ABG Base Excess -2 mEq/L (-2 to 3); ABG HCO3 21 mEq/L (21-27); ABG Oxygen Saturation 92 % (95-98); ABG PCO2 28 mmHg (35-45); ABG PH 7.49 pH Units (7.32-7.45); ABG PO2 58 mmHg (85-104); ABG TCO2 22 mEq/L (20-26); Blood Gas Modality AF; Blood Gas VT 500 cc
[2022-02-03] MEDS: atenoloL 25 MG TABLET PO SCH (11:40)
[2022-02-03] MEDS: Norepinephrine 4 MG/254 ML IV.SOLN IVC SCH ×2 (15:10→21:03)
[2022-02-03] MEDS ORDERED: Furosemide 20 MG/2 ML VIAL IVP ONE (15:18)
[2022-02-03] MEDS: Dexmedetomidine HCl 400 MCG/100 ML MLS IVC SCH (15:49)
[2022-02-03] MEDS: Vasopressin 40 UNIT in D5% in Water 100 ML IVC SCH (15:50)
[2022-02-03 16:17] LABS: ABG Base Excess 0 mEq/L (-2 to 3); ABG HCO3 24 mEq/L (21-27); ABG Oxygen Saturation 96 % (95-98); ABG PCO2 36 mmHg (35-45); ABG PH 7.43 pH Units (7.32-7.45); ABG PO2 82 mmHg (85-104); ABG TCO2 25 mEq/L (20-26); Blood Gas Modality AF; Blood Gas VT 500 cc
[2022-02-03 18:42] LABS: Hematocrit 23.2 % (37.5-50.1); Hemoglobin 7.9 g/dL (12.9-16.9)
[2022-02-03 19:02] LABS: Magnesium 2.2 mg/dL (1.6-2.6); Potassium 3.5 mEq/L (3.5-5.1)
[2022-02-03] MEDS ORDERED: 0.9 % Sodium Chloride 250 ML ONE (20:02)
[2022-02-03 22:39] LABS: Hematocrit 25.3 % (37.5-50.1); Hemoglobin 8.7 g/dL (12.9-16.9)
[2022-02-03 23:01] LABS: Magnesium 2.8 mg/dL (1.6-2.6); Potassium 4.1 mEq/L (3.5-5.1)
[2022-02-04] MEDS: FentaNYL (PF) 1,000 MCG/100 ML IV.SOLN IVC SCH ×4 (01:03→21:02)
[2022-02-04 03:33] LABS: VBG Ionized Calcium 1.12 mmol/L (1.15-1.35)
[2022-02-04 03:34] LABS: Basophils % 0.2 %; Hematocrit 25.7 % (37.5-50.1); Hemoglobin 8.8 g/dL (12.9-16.9); Mean Corpuscular HGB Conc 34.2 g/dL (31.6-35.5)
[2022-02-04 03:37] LABS: Eosinophils % 0.1 %; Immature Granulocytes % 0.9 % (0-4); Immature Platelets 6.1 % (1.1-6.1); Lymphocytes # 2.1 K/mcL (0.6-4.6); Lymphocytes % 17.2 %; Mean Corpuscular Hemoglobin 30.4 pg (28.0-33.3); Mean Corpuscular Volume 88.9 fL (83.0-100.0); Mean Platelet Volume 10.5 fL (9.4-12.4); Monocytes # 0.8 K/mcL (0.0-1.3); Monocytes % 6.5 %; Platelet Count 106 K/mcL (140-400); Red Blood Count 2.89 M/mcL (4.19-5.50); Red Cell Distribution Width 15.6 % (11.5-14.5); Segmented Neutrophils % 75.1 %
[2022-02-04 03:42] LABS: INR 1.1; Prothrombin Time 12.2 Seconds (9.4-12.1)
[2022-02-04 03:53] LABS: BUN/Creatinine Ratio 25 (6-26); Blood Urea Nitrogen 24 mg/dL (6-20); Calcium 8.2 mg/dL (8.6-10.3); Carbon Dioxide 26 mEq/L (23-29); Chloride 107 mEq/L (98-107); Glucose 102 mg/dL (70-105); Osmolality,Calculated 294 (280-300); Potassium 3.5 mEq/L (3.5-5.1); Sodium 140 mEq/L (136-145); eGFR For African Americans > 60 (> 60); eGFR For Non-African Americans > 60 (> 60)
[2022-02-04] MEDS: CeFAZolin 2,000 MG/120 ML BAG IVPB SCH ×3 (04:04→20:01)
[2022-02-04] MEDS: Midazolam HCl 50 MG/50 ML IV.SOLN IVC SCH ×3 (04:07→17:08)
[2022-02-04 04:30] LABS: ABG Base Excess 0 mEq/L (-2 to 3); ABG HCO3 24 mEq/L (21-27); ABG Oxygen Saturation 96 % (95-98); ABG PCO2 37 mmHg (35-45); ABG PH 7.43 pH Units (7.32-7.45); ABG PO2 77 mmHg (85-104); ABG TCO2 25 mEq/L (20-26); Blood Gas Modality AF; Blood Gas VT 500 cc
[2022-02-04] MEDS: Ketorolac 30 MG/ML VIAL IVP SCH ×4 (05:00→19:39)
[2022-02-04] MEDS ORDERED: Potassium Chloride Elixir 20 MEQ/15 ML UDC GTUBE ONE ×2 (05:09→17:00)
[2022-02-04] MEDS: Furosemide 20 MG/2 ML VIAL IVP SCH ×2 (07:43→16:52)
[2022-02-04] MEDS: Chlorhexidine Rinse 15 ML MOUTHWASH MM SCH ×2 (07:44→20:01)
[2022-02-04] MEDS: Sennosides/Docusate Sodium TABLET PO SCH ×2 (07:44→20:01)
[2022-02-04] MEDS: polyethylene glycoL 3350 17 GM POWD.PACK PO SCH (07:44)
[2022-02-04] MEDS: Pantoprazole 40 MG VIAL IVP SCH (07:45)
[2022-02-04] MEDS: Nicotine 21 MG PATCH.TD24 TD SCH (09:17)
[2022-02-04] MEDS: Dexmedetomidine HCl 400 MCG/100 ML MLS IVC SCH ×2 (09:18→19:39)
[2022-02-04] MEDS ORDERED: *HR* LORazepam 2 MG/ML VIAL IVP PRN (11:58)
[2022-02-04] MEDS: atenoloL 25 MG TABLET PO SCH (11:58)
[2022-02-04] MEDS: amLODIPine 5 MG TABLET PO SCH (11:59)
[2022-02-04] MEDS ORDERED: Methadone Oral Concentrate 50 MG/5 ML UDC GTUBE SCH (12:00)
[2022-02-04 16:50] LABS: Hematocrit 24.3 % (37.5-50.1); Hemoglobin 8.2 g/dL (12.9-16.9)
[2022-02-04] MEDS: Vasopressin 40 UNIT in D5% in Water 100 ML IVC SCH (16:56)
[2022-02-04] MEDS: Norepinephrine 4 MG/254 ML IV.SOLN IVC SCH (19:38)
[2022-02-05] MEDS: Midazolam HCl 50 MG/50 ML IV.SOLN IVC SCH ×2 (00:40→06:00)
[2022-02-05 03:35] LABS: VBG Ionized Calcium 1.16 mmol/L (1.15-1.35)
[2022-02-05] MEDS: CeFAZolin 2,000 MG/120 ML BAG IVPB SCH ×3 (03:51→21:05)
[2022-02-05] MEDS: FentaNYL (PF) 1,000 MCG/100 ML IV.SOLN IVC SCH ×2 (03:52→10:40)
[2022-02-05 04:19] LABS: Basophils % 0.2 %; Eosinophils # 0.1 K/mcL (0.0-0.6); Eosinophils % 0.7 %; Hematocrit 24.7 % (37.5-50.1); Hemoglobin 8.1 g/dL (12.9-16.9); Immature Granulocytes % 0.8 % (0-4); Lymphocytes # 2.3 K/mcL (0.6-4.6); Lymphocytes % 19.8 %; Mean Corpuscular HGB Conc 32.8 g/dL (31.6-35.5); Mean Corpuscular Hemoglobin 30.2 pg (28.0-33.3); Mean Corpuscular Volume 92.2 fL (83.0-100.0); Mean Platelet Volume 10.6 fL (9.4-12.4); Monocytes # 0.8 K/mcL (0.0-1.3); Monocytes % 6.7 %; Neutrophils # 8.5 K/mcL (1.6-8.9); Platelet Count 120 K/mcL (140-400); Red Blood Count 2.68 M/mcL (4.19-5.50); Segmented Neutrophils % 71.8 %; White Blood Count 11.8 K/mcL (4.3-11.1)
[2022-02-05 04:26] LABS: INR 1.1
[2022-02-05 04:30] LABS: BUN/Creatinine Ratio 30 (6-26); Blood Urea Nitrogen 24 mg/dL (6-20); Calcium 7.9 mg/dL (8.6-10.3); Carbon Dioxide 27 mEq/L (23-29); Chloride 109 mEq/L (98-107); Glucose 80 mg/dL (70-105); Magnesium 2.2 mg/dL (1.6-2.6); Osmolality,Calculated 293 (280-300); Potassium 3.5 mEq/L (3.5-5.1); Sodium 140 mEq/L (136-145); eGFR For African Americans > 60 (> 60); eGFR For Non-African Americans > 60 (> 60)
[2022-02-05 04:38] LABS: ABG Base Excess 1 mEq/L (-2 to 3); ABG HCO3 25 mEq/L (21-27); ABG Oxygen Saturation 95 % (95-98); ABG PCO2 37 mmHg (35-45); ABG PH 7.43 pH Units (7.32-7.45); ABG PO2 71 mmHg (85-104); ABG TCO2 26 mEq/L (20-26); Blood Gas VT 500 cc
[2022-02-05] MEDS: Sennosides/Docusate Sodium TABLET PO SCH ×2 (07:32→21:05)
[2022-02-05] MEDS: atenoloL 25 MG TABLET PO SCH (07:32)
[2022-02-05] MEDS: Pantoprazole 40 MG VIAL IVP SCH (07:33)
[2022-02-05] MEDS: Nicotine 21 MG PATCH.TD24 TD SCH (07:33)
[2022-02-05] MEDS: Chlorhexidine Rinse 15 ML MOUTHWASH MM SCH ×2 (07:34→21:05)
[2022-02-05] MEDS: amLODIPine 5 MG TABLET PO SCH (07:34)
[2022-02-05] MEDS: polyethylene glycoL 3350 17 GM POWD.PACK PO SCH (07:34)
[2022-02-05] MEDS: Furosemide 20 MG/2 ML VIAL IVP SCH ×2 (07:34→17:07)
[2022-02-05] MEDS ORDERED: *HR* Dextrose 50 % in Water (Syg) 50 ML SYRINGE IVP PRN (07:41)
[2022-02-05] MEDS ORDERED: Dextrose Gel 15 GM/37.5 ML TUBE PO PRN ×2 (07:41)
[2022-02-05] MEDS ORDERED: D5% in Water 1,000 ML IVC PRN (07:41)
[2022-02-05] MEDS: Insulin LISPRO 300 UNITS/3 ML VIAL SUBQ SCH ×4 (09:14→20:42)
[2022-02-05] MEDS ORDERED: *HR* Enoxaparin 40 MG/0.4 ML SYRINGE SQ ONE (09:21)
[2022-02-05] MEDS: Dexmedetomidine HCl 400 MCG/100 ML MLS IVC SCH ×3 (09:50→23:43)
[2022-02-05] MEDS ORDERED: D10% in Water 500 ML IVC PRN (13:02)
[2022-02-05 15:06] LABS: Phosphorous 2.1 mg/dL (2.7-4.5)
[2022-02-05] MEDS ORDERED: Clinimix E 5%-15% SOLUTION 2,000 ML with MVI, adult with vitamin K 10 ML IVC SCH (17:00)
[2022-02-06] MEDS: Insulin LISPRO 300 UNITS/3 ML VIAL SUBQ SCH ×6 (00:10→19:57)
[2022-02-06 04:28] LABS: ABG Base Excess 3 mEq/L (-2 to 3); ABG HCO3 27 mEq/L (21-27); ABG Oxygen Saturation 99 % (95-98); ABG PCO2 40 mmHg (35-45); ABG PH 7.44 pH Units (7.32-7.45); ABG PO2 142 mmHg (85-104); ABG TCO2 28 mEq/L (20-26); Blood Gas Modality AF; Blood Gas VT 500 cc
[2022-02-06 04:58] LABS: Alanine Aminotransferase < 3 Units/L (7-52); Albumin 2.8 g/dL (3.5-5.7); Alkaline Phosphatase 42 Units/L (34-104); Aspartate Amino Transferase 9 Units/L (13-39); BUN/Creatinine Ratio 34 (6-26); Bilirubin,Total 0.8 mg/dL (0.3-1.0); Blood Urea Nitrogen 23 mg/dL (6-20); Calcium 8.3 mg/dL (8.6-10.3); Carbon Dioxide 27 mEq/L (23-29); Chloride 109 mEq/L (98-107); Globulin 2.7 g/dL (2.4-3.5); Glucose 108 mg/dL (70-105); Magnesium 1.8 mg/dL (1.6-2.6); Osmolality,Calculated 296 (280-300); Phosphorous 2.9 mg/dL (2.7-4.5); Potassium 3.6 mEq/L (3.5-5.1); Sodium 141 mEq/L (136-145); Total Protein 5.5 g/dL (6.4-8.9); Triglycerides 145 mg/dL (< 150); eGFR For African Americans > 60 (> 60); eGFR For Non-African Americans > 60 (> 60)
[2022-02-06] MEDS: *HR* Enoxaparin 40 MG/0.4 ML SYRINGE SQ SCH (05:18)
[2022-02-06] MEDS: CeFAZolin 2,000 MG/120 ML BAG IVPB SCH ×3 (05:23→21:24)
[2022-02-06] MEDS: Dexmedetomidine HCl 400 MCG/100 ML MLS IVC SCH (05:59)
[2022-02-06] MEDS: atenoloL 25 MG TABLET PO SCH (07:14)
[2022-02-06] MEDS: Chlorhexidine Rinse 15 ML MOUTHWASH MM SCH ×2 (07:14→21:24)
[2022-02-06] MEDS: Sennosides/Docusate Sodium TABLET PO SCH ×2 (07:14→21:07)
[2022-02-06] MEDS: Nicotine 21 MG PATCH.TD24 TD SCH (07:14)
[2022-02-06] MEDS: amLODIPine 5 MG TABLET PO SCH (07:14)
[2022-02-06] MEDS: Furosemide 20 MG/2 ML VIAL IVP SCH (07:15)
[2022-02-06] MEDS: polyethylene glycoL 3350 17 GM POWD.PACK PO SCH (07:15)
[2022-02-06] MEDS: Pantoprazole 40 MG VIAL IVP SCH (07:15)
[2022-02-06 07:24] LABS: Basophils % 0.3 %; Eosinophils # 0.2 K/mcL (0.0-0.6); Eosinophils % 2.4 %; Hematocrit 23.4 % (37.5-50.1); Hemoglobin 7.8 g/dL (12.9-16.9); Immature Granulocytes % 0.7 % (0-4); Lymphocytes % 21.9 %; Mean Corpuscular HGB Conc 33.3 g/dL (31.6-35.5); Mean Corpuscular Hemoglobin 31.3 pg (28.0-33.3); Mean Platelet Volume 10.7 fL (9.4-12.4); Monocytes # 0.6 K/mcL (0.0-1.3); Monocytes % 7.1 %; Platelet Count 163 K/mcL (140-400); Red Blood Count 2.49 M/mcL (4.19-5.50); Red Cell Distribution Width 15.9 % (11.5-14.5); Segmented Neutrophils % 67.6 %; White Blood Count 8.9 K/mcL (4.3-11.1)
[2022-02-06 07:29] LABS: INR 1.2; Prothrombin Time 12.9 Seconds (9.4-12.1)
[2022-02-06] MEDS ORDERED: Potassium Chloride Elixir 20 MEQ/15 ML UDC GTUBE ONE (07:45)
[2022-02-06] MEDS: Ketorolac 30 MG/ML VIAL IVP SCH ×2 (11:01→17:19)
[2022-02-06] MEDS ORDERED: Furosemide 20 MG/2 ML VIAL IVP ONE (11:54)
[2022-02-06] MEDS ORDERED: D10% in Water 500 ML IVC PRN (13:23)
[2022-02-06] MEDS ORDERED: Clinimix E 5%-15% SOLUTION 2,000 ML with MVI, adult with vitamin K 10 ML IVC SCH (17:00)
[2022-02-06] MEDS: Morphine Sulfate 2 MG/ML SYRINGE IVP SCH (19:57)
[2022-02-06] MEDS: Furosemide 40 MG/4 ML VIAL IVP SCH (21:24)
[2022-02-07] MEDS: Morphine Sulfate 2 MG/ML SYRINGE IVP SCH (00:14)
[2022-02-07] MEDS: Melatonin 3 MG TABLET PO PRN (00:14)
[2022-02-07] MEDS: Ketorolac 30 MG/ML VIAL IVP SCH (00:14)
[2022-02-07] MEDS: Insulin LISPRO 300 UNITS/3 ML VIAL SUBQ SCH ×5 (00:25→20:42)
[2022-02-07 03:59] LABS: Basophils % 0.4 %; Eosinophils # 0.3 K/mcL (0.0-0.6); Eosinophils % 4.1 %; Hemoglobin 7.5 g/dL (12.9-16.9); Lymphocytes # 1.8 K/mcL (0.6-4.6); Lymphocytes % 20.9 %; Mean Corpuscular HGB Conc 32.6 g/dL (31.6-35.5); Mean Corpuscular Hemoglobin 30.7 pg (28.0-33.3); Mean Corpuscular Volume 94.3 fL (83.0-100.0); Mean Platelet Volume 10.2 fL (9.4-12.4); Monocytes # 0.8 K/mcL (0.0-1.3); Monocytes % 9.4 %; Neutrophils # 5.4 K/mcL (1.6-8.9); Platelet Count 205 K/mcL (140-400); Red Blood Count 2.44 M/mcL (4.19-5.50); Segmented Neutrophils % 64.2 %; White Blood Count 8.4 K/mcL (4.3-11.1)
[2022-02-07 04:03] LABS: INR 1.2; Prothrombin Time 13.1 Seconds (9.4-12.1)
[2022-02-07 04:18] LABS: Alanine Aminotransferase < 3 Units/L (7-52); Albumin 2.8 g/dL (3.5-5.7); Alkaline Phosphatase 61 Units/L (34-104); Aspartate Amino Transferase 11 Units/L (13-39); BUN/Creatinine Ratio 26 (6-26); Bilirubin,Total 0.8 mg/dL (0.3-1.0); Blood Urea Nitrogen 19 mg/dL (6-20); Calcium 8.2 mg/dL (8.6-10.3); Carbon Dioxide 29 mEq/L (23-29); Chloride 103 mEq/L (98-107); Globulin 2.8 g/dL (2.4-3.5); Glucose 112 mg/dL (70-105); Magnesium 1.7 mg/dL (1.6-2.6); Osmolality,Calculated 291 (280-300); Phosphorous 2.9 mg/dL (2.7-4.5); Potassium 3.1 mEq/L (3.5-5.1); Sodium 139 mEq/L (136-145); Total Protein 5.6 g/dL (6.4-8.9); eGFR For African Americans > 60 (> 60); eGFR For Non-African Americans > 60 (> 60)
[2022-02-07] MEDS: CeFAZolin 2,000 MG/120 ML BAG IVPB SCH ×3 (04:47→20:00)
[2022-02-07] MEDS: *HR* Enoxaparin 40 MG/0.4 ML SYRINGE SQ SCH (05:02)
[2022-02-07] MEDS: Morphine Sulfate 2 MG/ML SYRINGE IVP PRN ×4 (06:30→20:00)
[2022-02-07] MEDS ORDERED: Potassium Chloride Elixir 20 MEQ/15 ML UDC PO ONE ×2 (07:15→07:23)
[2022-02-07] MEDS: atenoloL 25 MG TABLET PO SCH (09:09)
[2022-02-07] MEDS: amLODIPine 5 MG TABLET PO SCH (09:09)
[2022-02-07] MEDS: Sennosides/Docusate Sodium TABLET PO SCH ×2 (09:09→20:01)
[2022-02-07] MEDS: polyethylene glycoL 3350 17 GM POWD.PACK PO SCH (09:15)
[2022-02-07] MEDS: Chlorhexidine Rinse 15 ML MOUTHWASH MM SCH ×2 (09:17→20:00)
[2022-02-07] MEDS: Pantoprazole 40 MG VIAL IVP SCH (09:27)
[2022-02-07] MEDS: Furosemide 40 MG/4 ML VIAL IVP SCH ×2 (09:28→20:01)
[2022-02-07] MEDS: Nicotine 21 MG PATCH.TD24 TD SCH (09:33)
[2022-02-07] MEDS ORDERED: 0.9 % Sodium Chloride 250 ML ONE (11:27)
[2022-02-07] MEDS ORDERED: Insulin LISPRO 300 UNITS/3 ML VIAL SUBQ SCH (12:00)
[2022-02-07 14:03] LABS: BUN/Creatinine Ratio 23 (6-26); Blood Urea Nitrogen 15 mg/dL (6-20); Calcium 8.7 mg/dL (8.6-10.3); Carbon Dioxide 28 mEq/L (23-29); Chloride 102 mEq/L (98-107); Glucose 126 mg/dL (70-105); Osmolality,Calculated 284 (280-300); Potassium 3.6 mEq/L (3.5-5.1); Sodium 136 mEq/L (136-145); eGFR For African Americans > 60 (> 60); eGFR For Non-African Americans > 60 (> 60)
[2022-02-07] MEDS ORDERED: *HR* Dextrose 50 % in Water (Syg) 50 ML SYRINGE IVP PRN (16:11)
[2022-02-07] MEDS ORDERED: Dextrose Gel 15 GM/37.5 ML TUBE PO PRN ×2 (16:11)
[2022-02-07] MEDS ORDERED: D5% in Water 1,000 ML IVC PRN (16:11)
[2022-02-07] MEDS ORDERED: Clinimix E 5%-15% SOLUTION 2,000 ML with MVI, adult with vitamin K 10 ML IVC SCH (17:00)
[2022-02-07] MEDS ORDERED: Albumin Human 5% 12.5 GM/250 ML IV.SOLN IVC SCH (22:45)
[2022-02-07] MEDS: Acetaminophen 325 MG TABLET PO PRN (23:00)
[2022-02-08] MEDS: Morphine Sulfate 2 MG/ML SYRINGE IVP PRN ×5 (00:31→21:53)
[2022-02-08] MEDS: Melatonin 3 MG TABLET PO PRN ×2 (00:31→20:10)
[2022-02-08] MEDS: CeFAZolin 2,000 MG/120 ML BAG IVPB SCH ×3 (04:15→20:34)
[2022-02-08 04:56] LABS: Basophils # 0.1 K/mcL (0.0-0.2); Basophils % 0.6 %; Eosinophils # 0.4 K/mcL (0.0-0.6); Eosinophils % 4.7 %; Hematocrit 31.3 % (37.5-50.1); Immature Granulocytes % 1.1 % (0-4); Lymphocytes # 1.9 K/mcL (0.6-4.6); Lymphocytes % 22.2 %; Mean Corpuscular HGB Conc 33.2 g/dL (31.6-35.5); Mean Corpuscular Hemoglobin 30.4 pg (28.0-33.3); Mean Corpuscular Volume 91.5 fL (83.0-100.0); Mean Platelet Volume 9.8 fL (9.4-12.4); Monocytes # 1.1 K/mcL (0.0-1.3); Monocytes % 13.5 %; Neutrophils # 4.8 K/mcL (1.6-8.9); Platelet Count 261 K/mcL (140-400); Red Blood Count 3.42 M/mcL (4.19-5.50); Segmented Neutrophils % 57.9 %; White Blood Count 8.4 K/mcL (4.3-11.1)
[2022-02-08 04:57] LABS: Hemoglobin 10.4 g/dL (12.9-16.9)
[2022-02-08 05:25] LABS: Alanine Aminotransferase < 3 Units/L (7-52); Albumin 3.2 g/dL (3.5-5.7); Albumin/Globulin Ratio 0.9 (1.1-2.2); Alkaline Phosphatase 76 Units/L (34-104); Aspartate Amino Transferase 14 Units/L (13-39); BUN/Creatinine Ratio 19 (6-26); Bilirubin,Total 1.8 mg/dL (0.3-1.0); Blood Urea Nitrogen 14 mg/dL (6-20); Calcium 8.6 mg/dL (8.6-10.3); Carbon Dioxide 26 mEq/L (23-29); Chloride 101 mEq/L (98-107); Globulin 3.6 g/dL (2.4-3.5); Glucose 87 mg/dL (70-105); Magnesium 1.8 mg/dL (1.6-2.6); Osmolality,Calculated 284 (280-300); Phosphorous 3.1 mg/dL (2.7-4.5); Potassium 3.2 mEq/L (3.5-5.1); Sodium 137 mEq/L (136-145); Total Protein 6.8 g/dL (6.4-8.9); eGFR For African Americans > 60 (> 60); eGFR For Non-African Americans > 60 (> 60)
[2022-02-08] MEDS ORDERED: Potassium Chloride Elixir 20 MEQ/15 ML UDC PO ONE (07:35)
[2022-02-08] MEDS: polyethylene glycoL 3350 17 GM POWD.PACK PO SCH (07:48)
[2022-02-08] MEDS: Sennosides/Docusate Sodium TABLET PO SCH ×2 (07:51→20:01)
[2022-02-08] MEDS: Furosemide 40 MG/4 ML VIAL IVP SCH ×2 (08:07→20:10)
[2022-02-08] MEDS: Pantoprazole 40 MG VIAL IVP SCH (08:08)
[2022-02-08] MEDS: amLODIPine 5 MG TABLET PO SCH (08:18)
[2022-02-08] MEDS: atenoloL 25 MG TABLET PO SCH (08:18)
[2022-02-08] MEDS: Ondansetron 4 MG/2 ML VIAL IVP PRN (08:21)
[2022-02-08] MEDS: Chlorhexidine Rinse 15 ML MOUTHWASH MM SCH ×2 (08:26→20:10)
[2022-02-08] MEDS: Nicotine 21 MG PATCH.TD24 TD SCH (08:53)
[2022-02-08] MEDS: Insulin LISPRO 300 UNITS/3 ML VIAL SUBQ SCH ×4 (09:27→21:12)
[2022-02-08] MEDS ORDERED: Ketorolac 30 MG/ML VIAL IVP ONE (13:43)
[2022-02-08 16:39] LABS: Potassium 3.5 mEq/L (3.5-5.1)
[2022-02-08] MEDS ORDERED: traZODone 50 MG TABLET PO PRN (20:29)
[2022-02-08] MEDS: Acetaminophen 325 MG TABLET PO PRN (20:33)
[2022-02-09] MEDS: CeFAZolin 2,000 MG/120 ML BAG IVPB SCH ×3 (04:17→20:31)
[2022-02-09 04:24] LABS: VBG Ionized Calcium 1.15 mmol/L (1.15-1.35)
[2022-02-09 04:49] LABS: Basophils # 0.1 K/mcL (0.0-0.2); Basophils % 0.7 %; Eosinophils # 0.6 K/mcL (0.0-0.6); Eosinophils % 6.3 %; Hematocrit 35.6 % (37.5-50.1); Hemoglobin 11.9 g/dL (12.9-16.9); Immature Granulocytes % 1.2 % (0-4); Lymphocytes # 2.3 K/mcL (0.6-4.6); Lymphocytes % 25.3 %; Mean Corpuscular HGB Conc 33.4 g/dL (31.6-35.5); Mean Corpuscular Hemoglobin 30.7 pg (28.0-33.3); Mean Corpuscular Volume 91.8 fL (83.0-100.0); Mean Platelet Volume 9.4 fL (9.4-12.4); Monocytes # 1.4 K/mcL (0.0-1.3); Monocytes % 15.3 %; Neutrophils # 4.5 K/mcL (1.6-8.9); Platelet Count 332 K/mcL (140-400); Red Blood Count 3.88 M/mcL (4.19-5.50); Red Cell Distribution Width 16.2 % (11.5-14.5); Segmented Neutrophils % 51.2 %; White Blood Count 8.9 K/mcL (4.3-11.1)
[2022-02-09 04:51] LABS: BUN/Creatinine Ratio 20 (6-26); Blood Urea Nitrogen 17 mg/dL (6-20); Calcium 9.2 mg/dL (8.6-10.3); Carbon Dioxide 28 mEq/L (23-29); Chloride 100 mEq/L (98-107); Glucose 84 mg/dL (70-105); Magnesium 1.9 mg/dL (1.6-2.6); Osmolality,Calculated 283 (280-300); Phosphorous 3.3 mg/dL (2.7-4.5); Potassium 3.3 mEq/L (3.5-5.1); Sodium 136 mEq/L (136-145); eGFR For African Americans > 60 (> 60); eGFR For Non-African Americans > 60 (> 60)
[2022-02-09] MEDS ORDERED: *HR* OxyCODONE Immed Rel 5 MG TABLET PO PRN ×3 (06:29→12:35)
[2022-02-09] MEDS: Pantoprazole 40 MG VIAL IVP SCH (07:46)
[2022-02-09] MEDS: *HR* Enoxaparin 40 MG/0.4 ML SYRINGE SQ SCH (07:48)
[2022-02-09] MEDS: Chlorhexidine Rinse 15 ML MOUTHWASH MM SCH (07:48)
[2022-02-09] MEDS: Sennosides/Docusate Sodium TABLET PO SCH ×2 (07:49→20:25)
[2022-02-09] MEDS: amLODIPine 5 MG TABLET PO SCH (07:49)
[2022-02-09] MEDS: Nicotine 21 MG PATCH.TD24 TD SCH (07:49)
[2022-02-09] MEDS: polyethylene glycoL 3350 17 GM POWD.PACK PO SCH (07:49)
[2022-02-09] MEDS: Furosemide 40 MG/4 ML VIAL IVP SCH (07:50)
[2022-02-09] MEDS: atenoloL 25 MG TABLET PO SCH (07:50)
[2022-02-09] MEDS: Insulin LISPRO 300 UNITS/3 ML VIAL SUBQ SCH (07:51)
[2022-02-09] MEDS ORDERED: *HR* Dextrose 50 % in Water (Syg) 50 ML SYRINGE IVP PRN (12:35)
[2022-02-09] MEDS ORDERED: Naloxone 0.4 MG/ML INJ IVP PRN (12:35)
[2022-02-09] MEDS ORDERED: Ondansetron 4 MG/2 ML VIAL IVP PRN (12:35)
[2022-02-09] MEDS ORDERED: Ipratropium/Albuterol Neb 3 ML IH PRN (12:35)
[2022-02-09] MEDS ORDERED: Albuterol 2.5 MG/3 ML NEBULIZER IH PRN (12:35)
[2022-02-09] MEDS ORDERED: D10% in Water 500 ML IVC PRN (12:35)
[2022-02-09] MEDS ORDERED: Calcium Gluconate 1gm/50mL 1 GM/50 ML BAG IVPB PRN (14:05)
[2022-02-09] MEDS: *HR* OxyCODONE Immed Rel 5 MG TABLET PO PRN ×2 (17:17→23:06)
[2022-02-09 18:25] LABS: VBG Ionized Calcium 1.12 mmol/L (1.15-1.35)
[2022-02-09 18:41] LABS: BUN/Creatinine Ratio 23 (6-26); Blood Urea Nitrogen 23 mg/dL (6-20); Carbon Dioxide 27 mEq/L (23-29); Chloride 99 mEq/L (98-107); Glucose 118 mg/dL (70-105); Magnesium 2.1 mg/dL (1.6-2.6); Osmolality,Calculated 281 (280-300); Phosphorous 2.4 mg/dL (2.7-4.5); Potassium 3.7 mEq/L (3.5-5.1); Sodium 133 mEq/L (136-145); eGFR For African Americans > 60 (> 60); eGFR For Non-African Americans > 60 (> 60)
[2022-02-09] MEDS: Melatonin 3 MG TABLET PO PRN (21:12)
[2022-02-09] MEDS: traZODone 50 MG TABLET PO PRN (21:13)
[2022-02-10] MEDS: Acetaminophen 325 MG TABLET PO PRN ×2 (01:16→16:52)
[2022-02-10 04:13] LABS: Basophils # 0.1 K/mcL (0.0-0.2); Basophils % 0.4 %; Eosinophils # 0.8 K/mcL (0.0-0.6); Eosinophils % 5.6 %; Hematocrit 35.2 % (37.5-50.1); Hemoglobin 11.7 g/dL (12.9-16.9); Lymphocytes % 14.6 %; Mean Corpuscular HGB Conc 33.2 g/dL (31.6-35.5); Mean Corpuscular Hemoglobin 30.5 pg (28.0-33.3); Mean Corpuscular Volume 91.7 fL (83.0-100.0); Monocytes % 13.4 %; Neutrophils # 9.6 K/mcL (1.6-8.9); Platelet Count 352 K/mcL (140-400); Red Blood Count 3.84 M/mcL (4.19-5.50); Red Cell Distribution Width 16.1 % (11.5-14.5)
[2022-02-10 04:15] LABS: Lymphocytes # 2.2 K/mcL (0.6-4.6); White Blood Count 14.7 K/mcL (4.3-11.1)
[2022-02-10 04:29] LABS: BUN/Creatinine Ratio 25 (6-26); Blood Urea Nitrogen 22 mg/dL (6-20); Calcium 8.8 mg/dL (8.6-10.3); Carbon Dioxide 25 mEq/L (23-29); Chloride 102 mEq/L (98-107); Glucose 99 mg/dL (70-105); Osmolality,Calculated 281 (280-300); Potassium 4.1 mEq/L (3.5-5.1); Sodium 134 mEq/L (136-145); eGFR For African Americans > 60 (> 60); eGFR For Non-African Americans > 60 (> 60)
[2022-02-10] MEDS: CeFAZolin 2,000 MG/120 ML BAG IVPB SCH ×3 (06:00→20:45)
[2022-02-10] MEDS: *HR* Enoxaparin 40 MG/0.4 ML SYRINGE SQ SCH (06:01)
[2022-02-10] MEDS: amLODIPine 5 MG TABLET PO SCH (08:49)
[2022-02-10] MEDS: atenoloL 25 MG TABLET PO SCH (08:49)
[2022-02-10] MEDS: polyethylene glycoL 3350 17 GM POWD.PACK PO SCH (08:53)
[2022-02-10] MEDS: Nicotine 21 MG PATCH.TD24 TD SCH (08:55)
[2022-02-10] MEDS: Sennosides/Docusate Sodium TABLET PO SCH ×2 (08:56→20:45)
[2022-02-10] MEDS ORDERED: Pantoprazole 40 MG VIAL IVP SCH (09:00)
[2022-02-10] MEDS: *HR* OxyCODONE Immed Rel 5 MG TABLET PO PRN ×3 (11:42→21:43)
[2022-02-10] MEDS: Famotidine 20 MG TABLET PO SCH (20:46)
[2022-02-10] MEDS: Melatonin 3 MG TABLET PO PRN (21:43)
[2022-02-10] MEDS: traZODone 50 MG TABLET PO PRN (21:43)
[2022-02-11] MEDS: *HR* OxyCODONE Immed Rel 5 MG TABLET PO PRN ×6 (02:14→23:57)
[2022-02-11] MEDS: CeFAZolin 2,000 MG/120 ML BAG IVPB SCH ×3 (05:58→19:39)
[2022-02-11] MEDS: polyethylene glycoL 3350 17 GM POWD.PACK PO SCH (08:23)
[2022-02-11] MEDS: amLODIPine 5 MG TABLET PO SCH (08:23)
[2022-02-11] MEDS: atenoloL 25 MG TABLET PO SCH (08:23)
[2022-02-11] MEDS: Sennosides/Docusate Sodium TABLET PO SCH ×2 (08:23→19:38)
[2022-02-11] MEDS: Famotidine 20 MG TABLET PO SCH ×2 (08:23→19:38)
[2022-02-11] MEDS: Nicotine 21 MG PATCH.TD24 TD SCH (08:23)
[2022-02-11] MEDS: *HR* Enoxaparin 40 MG/0.4 ML SYRINGE SQ SCH (10:29)
[2022-02-11 10:40] LABS: Bilirubin,Urine Negative (Negative); Blood,Urine Large (Negative); Clarity,Urine Turbid (Clear); Color,Urine Light-Orange (Yellow); Glucose,Urine (UA) Normal (Normal); Ketones,Urine Negative (Negative); Leukocyte Esterase,Urine Trace (Negative); Mucus,Urine Few per lpf (None-Few); Nitrite,Urine Negative (Negative); PH,Urine 6.5 pH Units (5.0-8.0); Protein,Urine 100 mg/dL (Neg-Trace); RBC,Urine TNTC per hpf (0-3); Urobilinogen,Urine Normal (Normal); WBC,Urine 50-100 per hpf (0-3)
[2022-02-11 10:54] LABS: Albumin 3.3 g/dL (3.5-5.7); Albumin/Globulin Ratio 0.8 (1.1-2.2); Bilirubin,Direct 0.2 mg/dL (0.0-0.2); Bilirubin,Indirect 0.5 mg/dL (0.0-1.0); Bilirubin,Total 0.7 mg/dL (0.3-1.0); Globulin 3.9 g/dL (2.4-3.5); Total Protein 7.2 g/dL (6.4-8.9)
[2022-02-11] MEDS: traZODone 50 MG TABLET PO PRN (23:57)
[2022-02-11] MEDS: Melatonin 3 MG TABLET PO PRN (23:58)
[2022-02-12] MEDS: *HR* OxyCODONE Immed Rel 5 MG TABLET PO PRN ×2 (05:42→09:59)
[2022-02-12] MEDS: CeFAZolin 2,000 MG/120 ML BAG IVPB SCH ×3 (05:42→19:57)
[2022-02-12 06:24] LABS: Basophils % 0.8 %; Eosinophils % 6.6 %; Hematocrit 34.9 % (37.5-50.1); Hemoglobin 11.2 g/dL (12.9-16.9); Immature Granulocytes % 1.2 % (0-4); Lymphocytes % 19.9 %; Mean Corpuscular HGB Conc 32.1 g/dL (31.6-35.5); Mean Corpuscular Hemoglobin 30.3 pg (28.0-33.3); Mean Corpuscular Volume 94.3 fL (83.0-100.0); Mean Platelet Volume 8.9 fL (9.4-12.4); Monocytes % 11.8 %; Platelet Count 379 K/mcL (140-400); Red Cell Distribution Width 15.8 % (11.5-14.5); Segmented Neutrophils % 59.7 %; White Blood Count 9.9 K/mcL (4.3-11.1)
[2022-02-12 06:25] LABS: Basophils # 0.1 K/mcL (0.0-0.2); Eosinophils # 0.7 K/mcL (0.0-0.6); Monocytes # 1.2 K/mcL (0.0-1.3); Neutrophils # 5.9 K/mcL (1.6-8.9)
[2022-02-12 06:49] LABS: Alanine Aminotransferase 5 Units/L (7-52); Albumin 3.2 g/dL (3.5-5.7); Albumin/Globulin Ratio 0.8 (1.1-2.2); Alkaline Phosphatase 77 Units/L (34-104); Aspartate Amino Transferase 14 Units/L (13-39); BUN/Creatinine Ratio 22 (6-26); Bilirubin,Direct 0.2 mg/dL (0.0-0.2); Bilirubin,Indirect 0.6 mg/dL (0.0-1.0); Bilirubin,Total 0.8 mg/dL (0.3-1.0); Blood Urea Nitrogen 23 mg/dL (6-20); Calcium 8.9 mg/dL (8.6-10.3); Carbon Dioxide 23 mEq/L (23-29); Chloride 104 mEq/L (98-107); Globulin 3.9 g/dL (2.4-3.5); Glucose 98 mg/dL (70-105); Osmolality,Calculated 286 (280-300); Potassium 3.7 mEq/L (3.5-5.1); Sodium 136 mEq/L (136-145); Total Protein 7.1 g/dL (6.4-8.9); eGFR For African Americans > 60 (> 60); eGFR For Non-African Americans > 60 (> 60)
[2022-02-12] MEDS: Famotidine 20 MG TABLET PO SCH ×2 (08:39→19:57)
[2022-02-12] MEDS: amLODIPine 5 MG TABLET PO SCH (08:39)
[2022-02-12] MEDS: polyethylene glycoL 3350 17 GM POWD.PACK PO SCH (08:40)
[2022-02-12] MEDS: Sennosides/Docusate Sodium TABLET PO SCH ×2 (08:40→19:57)
[2022-02-12] MEDS: Nicotine 21 MG PATCH.TD24 TD SCH (08:40)
[2022-02-12] MEDS: atenoloL 25 MG TABLET PO SCH (08:40)
[2022-02-12] MEDS: Ibuprofen 600 MG TABLET PO PRN (13:49)
[2022-02-12] MEDS: Acetaminophen 325 MG TABLET PO PRN (23:43)
[2022-02-12] MEDS: traZODone 50 MG TABLET PO PRN (23:44)
[2022-02-13] MEDS: CeFAZolin 2,000 MG/120 ML BAG IVPB SCH ×3 (05:54→21:04)
[2022-02-13] MEDS: Famotidine 20 MG TABLET PO SCH ×2 (08:36→21:01)
[2022-02-13] MEDS: amLODIPine 5 MG TABLET PO SCH (08:37)
[2022-02-13] MEDS: Sennosides/Docusate Sodium TABLET PO SCH ×2 (08:37→21:01)
[2022-02-13] MEDS: atenoloL 25 MG TABLET PO SCH (08:37)
[2022-02-13] MEDS: Ibuprofen 600 MG TABLET PO PRN (08:37)
[2022-02-13] MEDS: polyethylene glycoL 3350 17 GM POWD.PACK PO SCH (08:38)
[2022-02-13] MEDS: Nicotine 21 MG PATCH.TD24 TD SCH (08:38)
[2022-02-13] MEDS ORDERED: Moderna Covid-19 Vaccine 100MCG/0.5mL IM ONE (12:20)
[2022-02-13] MEDS: Acetaminophen 325 MG TABLET PO PRN (21:03)
[2022-02-13] MEDS: traZODone 50 MG TABLET PO PRN (23:36)
[2022-02-14] MEDS: CeFAZolin 2,000 MG/120 ML BAG IVPB SCH ×3 (06:07→19:36)
[2022-02-14] MEDS: polyethylene glycoL 3350 17 GM POWD.PACK PO SCH (08:17)
[2022-02-14] MEDS: amLODIPine 5 MG TABLET PO SCH (08:17)
[2022-02-14] MEDS: Ibuprofen 600 MG TABLET PO PRN (08:17)
[2022-02-14] MEDS: Nicotine 21 MG PATCH.TD24 TD SCH (08:17)
[2022-02-14] MEDS: Famotidine 20 MG TABLET PO SCH ×2 (08:18→19:29)
[2022-02-14] MEDS: Sennosides/Docusate Sodium TABLET PO SCH ×2 (08:18→19:29)
[2022-02-14] MEDS: atenoloL 25 MG TABLET PO SCH (08:18)
[2022-02-14] MEDS: Acetaminophen 325 MG TABLET PO PRN (19:36)
[2022-02-14] MEDS: traZODone 50 MG TABLET PO PRN (22:59)
[2022-02-15] MEDS: CeFAZolin 2,000 MG/120 ML BAG IVPB SCH ×2 (05:54→12:51)
[2022-02-15] MEDS: polyethylene glycoL 3350 17 GM POWD.PACK PO SCH (07:38)
[2022-02-15] MEDS: amLODIPine 5 MG TABLET PO SCH (07:38)
[2022-02-15] MEDS: Famotidine 20 MG TABLET PO SCH (07:38)
[2022-02-15] MEDS: Sennosides/Docusate Sodium TABLET PO SCH (07:39)
[2022-02-15] MEDS: atenoloL 25 MG TABLET PO SCH (07:39)
[2022-02-15] MEDS: Nicotine 21 MG PATCH.TD24 TD SCH (07:42)
[2022-02-15 12:19] LABS: Adenovirus Not Detected (Not Detect); Bordetella Pertussis Not Detected (Not Detect); Chlamydophila pneumoniae Not Detected (Not Detect); Coronavirus 229E Not Detected (Not Detect); Coronavirus HKU1 Not Detected (Not Detect); Coronavirus NL63 Not Detected (Not Detect); Coronavirus OC43 Not Detected (Not Detect); Human Metapneumovirus Not Detected (Not Detect); Human Rhinovirus/Enterovirus Not Detected (Not Detect); Influenza A Subtype 2009 H1 Not Detected (Not Detect); Influenza B Not Detected (Not Detect); Mycoplasma pneumoniae Not Detected (Not Detect); Parainfluenza Virus 1 Not Detected (Not Detect); Parainfluenza Virus 2 Not Detected (Not Detect); Parainfluenza Virus 3 Not Detected (Not Detect); Parainfluenza Virus 4 Not Detected (Not Detect); Respiratory Syncytial Virus Not Detected (Not Detect); SARS-CoV-2 Not Detected (Not Detect)
[2022-02-15 16:41] VITALS: BP 147/77; PULSE 84; TEMP 97.9; O2SAT 98
== END 2022-02-15 17:57 | DRG 710 ==
LOC: EMEROOARM 15:09 → 3ANU 15:09 → SUATTDRO 19:41 → 3ANU 20:30 → SUATTDRO 01-24 12:34 → 3ANU 01-26 10:26 → ICNU 02-02 01:59 → 2NNU 02-10 04:15
PROVIDERS: ADMIT Family Medicine; ATTEND Internal Medicine

== ENCOUNTER 2022-02-20 13:03 | Observation (INO) ==
[2022-02-20 20:03] LABS: Basophils % 0.5 %; Eosinophils # 0.6 K/mcL (0.0-0.6); Eosinophils % 7.3 %; Hemoglobin 10.8 g/dL (12.9-16.9); Immature Granulocytes % 0.8 % (0-4); Lymphocytes # 2.2 K/mcL (0.6-4.6); Lymphocytes % 26.3 %; Mean Corpuscular HGB Conc 32.7 g/dL (31.6-35.5); Mean Corpuscular Hemoglobin 30.9 pg (28.0-33.3); Mean Corpuscular Volume 94.3 fL (83.0-100.0); Mean Platelet Volume 8.5 fL (9.4-12.4); Monocytes # 0.7 K/mcL (0.0-1.3); Monocytes % 8.1 %; Neutrophils # 4.9 K/mcL (1.6-8.9); Platelet Count 367 K/mcL (140-400); Red Cell Distribution Width 15.5 % (11.5-14.5); White Blood Count 8.5 K/mcL (4.3-11.1)
[2022-02-20 20:23] LABS: Calcium 8.9 mg/dL (8.6-10.3); Potassium 4.1 mEq/L (3.5-5.1)
[2022-02-20] MEDS ORDERED: CeFAZolin (wt based) IVPB ONE (20:33)
[2022-02-20] MEDS ORDERED: ceFAZolin 2,000 MG in 0.9 % Sodium Chloride 100 ML IVPB ONE (20:45)
[2022-02-20] MEDS ORDERED: CeFAZolin 2,000 MG/120 ML BAG IVPB ONE (21:00)
[2022-02-20] MEDS ORDERED: Melatonin 3 MG TABLET PO PRN (21:34)
[2022-02-20] MEDS ORDERED: Ondansetron ODT 4 MG TAB.RAPDIS SL PRN (21:34)
[2022-02-20] MEDS ORDERED: Naloxone 0.4 MG/ML INJ IVP PRN (21:34)
[2022-02-20] MEDS ORDERED: traZODone 50 MG TABLET PO PRN (21:48)
[2022-02-21] MEDS: Nicotine 14 MG PATCH.TD24 TD SCH ×2 (04:42→08:38)
[2022-02-21 05:20] LABS: Basophils # 0.1 K/mcL (0.0-0.2); Basophils % 1.1 %; Eosinophils # 0.6 K/mcL (0.0-0.6); Eosinophils % 7.7 %; Hematocrit 35.4 % (37.5-50.1); Hemoglobin 11.4 g/dL (12.9-16.9); Immature Granulocytes % 0.8 % (0-4); Lymphocytes # 1.6 K/mcL (0.6-4.6); Mean Corpuscular HGB Conc 32.2 g/dL (31.6-35.5); Mean Corpuscular Hemoglobin 30.4 pg (28.0-33.3); Mean Corpuscular Volume 94.4 fL (83.0-100.0); Mean Platelet Volume 8.3 fL (9.4-12.4); Monocytes # 0.6 K/mcL (0.0-1.3); Monocytes % 7.5 %; Neutrophils # 4.5 K/mcL (1.6-8.9); Platelet Count 334 K/mcL (140-400); Red Blood Count 3.75 M/mcL (4.19-5.50); Red Cell Distribution Width 15.2 % (11.5-14.5); Segmented Neutrophils % 60.9 %; White Blood Count 7.4 K/mcL (4.3-11.1)
[2022-02-21 05:31] LABS: Calcium 9.1 mg/dL (8.6-10.3); Magnesium 1.9 mg/dL (1.6-2.6); Phosphorous 3.8 mg/dL (2.7-4.5); Potassium 3.7 mEq/L (3.5-5.1)
[2022-02-21] MEDS: ceFAZolin 2,000 MG in 0.9 % Sodium Chloride 100 ML IVPB SCH ×3 (06:23→21:56)
[2022-02-21] MEDS: amLODIPine 5 MG TABLET PO SCH (08:38)
[2022-02-21] MEDS: atenoloL 25 MG TABLET PO SCH (08:38)
[2022-02-21] MEDS: *HR* Buprenorphine HCl 8 MG TAB.SUBL SL SCH (11:17)
[2022-02-21 16:04] LABS: Amphetamine Screen,Urine Negative ng/mL (Cutoff=1000); Barbiturate Screen,Urine Negative ng/mL (Cutoff=200); Benzodiazepines Screen,Urine Negative ng/mL (Cutoff=200); Cannabinoid Screen,Urine Positive ng/mL (Cutoff = 50); Cocaine Screen,Urine Negative ng/mL (Cutoff= 300); Opiate Screen,Urine Negative ng/mL (Cutoff=300); Phencyclidine Screen,Urine Negative ng/mL (Cutoff=25)
[2022-02-21] MEDS ORDERED: Naloxone 0.4 MG/ML INJ IVP PRN (16:21)
[2022-02-22 04:05] LABS: Basophils # 0.1 K/mcL (0.0-0.2); Basophils % 0.6 %; Eosinophils # 0.6 K/mcL (0.0-0.6); Eosinophils % 7.8 %; Hematocrit 32.2 % (37.5-50.1); Hemoglobin 10.3 g/dL (12.9-16.9); Immature Granulocytes % 0.6 % (0-4); Lymphocytes # 1.7 K/mcL (0.6-4.6); Lymphocytes % 22.1 %; Mean Corpuscular Hemoglobin 30.2 pg (28.0-33.3); Mean Corpuscular Volume 94.4 fL (83.0-100.0); Mean Platelet Volume 8.5 fL (9.4-12.4); Monocytes # 0.7 K/mcL (0.0-1.3); Monocytes % 8.5 %; Neutrophils # 4.7 K/mcL (1.6-8.9); Platelet Count 338 K/mcL (140-400); Red Blood Count 3.41 M/mcL (4.19-5.50); Red Cell Distribution Width 14.9 % (11.5-14.5); Segmented Neutrophils % 60.4 %; White Blood Count 7.7 K/mcL (4.3-11.1)
[2022-02-22 04:22] LABS: Calcium 9.2 mg/dL (8.6-10.3); Magnesium 1.7 mg/dL (1.6-2.6); Potassium 3.9 mEq/L (3.5-5.1)
[2022-02-22] MEDS: ceFAZolin 2,000 MG in 0.9 % Sodium Chloride 100 ML IVPB SCH ×3 (05:09→21:45)
[2022-02-22] MEDS: Nicotine 14 MG PATCH.TD24 TD SCH (10:19)
[2022-02-22] MEDS: *HR* Buprenorphine HCl 8 MG TAB.SUBL SL SCH (10:19)
[2022-02-22] MEDS: 0.9 % Sodium Chloride 1,000 ML IVC SCH ×2 (10:19→21:26)
[2022-02-22] MEDS: amLODIPine 5 MG TABLET PO SCH (10:19)
[2022-02-22] MEDS: atenoloL 25 MG TABLET PO SCH (10:19)
[2022-02-22] MEDS ORDERED: Bismuth Subsalicylate 120 ML ORAL SUSPENSION PO ONE (23:13)
[2022-02-22] MEDS ORDERED: Acetaminophen 325 MG TABLET PO ONE (23:18)
[2022-02-23 02:54] LABS: Calcium 8.8 mg/dL (8.6-10.3); Magnesium 1.6 mg/dL (1.6-2.6)
[2022-02-23 02:59] LABS: Basophils # 0.1 K/mcL (0.0-0.2); Basophils % 0.7 %; Eosinophils # 0.6 K/mcL (0.0-0.6); Eosinophils % 8.2 %; Hematocrit 32.2 % (37.5-50.1); Hemoglobin 10.3 g/dL (12.9-16.9); Immature Granulocytes % 0.7 % (0-4); Lymphocytes # 1.6 K/mcL (0.6-4.6); Mean Corpuscular Hemoglobin 30.2 pg (28.0-33.3); Mean Corpuscular Volume 94.4 fL (83.0-100.0); Mean Platelet Volume 8.8 fL (9.4-12.4); Monocytes # 0.6 K/mcL (0.0-1.3); Monocytes % 9.4 %; Neutrophils # 3.8 K/mcL (1.6-8.9); Platelet Count 309 K/mcL (140-400); Red Blood Count 3.41 M/mcL (4.19-5.50); Red Cell Distribution Width 14.7 % (11.5-14.5); White Blood Count 6.7 K/mcL (4.3-11.1)
[2022-02-23] MEDS: ceFAZolin 2,000 MG in 0.9 % Sodium Chloride 100 ML IVPB SCH ×3 (04:22→19:27)
[2022-02-23] MEDS: *HR* Buprenorphine HCl 8 MG TAB.SUBL SL SCH (07:50)
[2022-02-23] MEDS: Nicotine 14 MG PATCH.TD24 TD SCH (07:50)
[2022-02-23] MEDS: atenoloL 25 MG TABLET PO SCH (07:50)
[2022-02-23] MEDS: amLODIPine 5 MG TABLET PO SCH (07:51)
[2022-02-23] MEDS ORDERED: Bismuth Subsalicylate 120 ML ORAL SUSPENSION PO PRN (23:01)
[2022-02-23] MEDS ORDERED: Bismuth Subsalicylate 525 MG/30 ML UDC PO PRN (23:19)
[2022-02-24] MEDS: ceFAZolin 2,000 MG in 0.9 % Sodium Chloride 100 ML IVPB SCH ×3 (05:11→20:35)
[2022-02-24 05:27] LABS: Basophils # 0.1 K/mcL (0.0-0.2); Basophils % 0.9 %; Eosinophils # 0.5 K/mcL (0.0-0.6); Eosinophils % 7.6 %; Hematocrit 30.4 % (37.5-50.1); Hemoglobin 9.9 g/dL (12.9-16.9); Immature Granulocytes % 0.7 % (0-4); Lymphocytes # 1.8 K/mcL (0.6-4.6); Lymphocytes % 25.6 %; Mean Corpuscular HGB Conc 32.6 g/dL (31.6-35.5); Mean Corpuscular Hemoglobin 30.5 pg (28.0-33.3); Mean Corpuscular Volume 93.5 fL (83.0-100.0); Mean Platelet Volume 8.4 fL (9.4-12.4); Monocytes # 0.6 K/mcL (0.0-1.3); Monocytes % 8.9 %; Neutrophils # 3.9 K/mcL (1.6-8.9); Platelet Count 282 K/mcL (140-400); Red Blood Count 3.25 M/mcL (4.19-5.50); Red Cell Distribution Width 14.6 % (11.5-14.5); Segmented Neutrophils % 56.3 %; White Blood Count 6.9 K/mcL (4.3-11.1)
[2022-02-24 05:54] LABS: Calcium 8.8 mg/dL (8.6-10.3); Magnesium 1.6 mg/dL (1.6-2.6); Potassium 3.4 mEq/L (3.5-5.1)
[2022-02-24] MEDS: Nicotine 14 MG PATCH.TD24 TD SCH (09:42)
[2022-02-24] MEDS: amLODIPine 5 MG TABLET PO SCH (09:42)
[2022-02-24] MEDS: *HR* Buprenorphine HCl 8 MG TAB.SUBL SL SCH (09:42)
[2022-02-24] MEDS: atenoloL 25 MG TABLET PO SCH (09:42)
[2022-02-24] MEDS: Sennosides 8.6 MG TABLET PO SCH (20:35)
[2022-02-25] MEDS: ceFAZolin 2,000 MG in 0.9 % Sodium Chloride 100 ML IVPB SCH ×3 (05:09→21:13)
[2022-02-25 05:28] LABS: Basophils % 0.6 %; Eosinophils # 0.6 K/mcL (0.0-0.6); Eosinophils % 9.2 %; Hematocrit 30.1 % (37.5-50.1); Hemoglobin 9.8 g/dL (12.9-16.9); Immature Granulocytes % 0.9 % (0-4); Lymphocytes # 1.9 K/mcL (0.6-4.6); Lymphocytes % 27.9 %; Mean Corpuscular HGB Conc 32.6 g/dL (31.6-35.5); Mean Corpuscular Hemoglobin 30.7 pg (28.0-33.3); Mean Corpuscular Volume 94.4 fL (83.0-100.0); Mean Platelet Volume 8.5 fL (9.4-12.4); Monocytes # 0.7 K/mcL (0.0-1.3); Monocytes % 10.5 %; Neutrophils # 3.5 K/mcL (1.6-8.9); Platelet Count 261 K/mcL (140-400); Red Blood Count 3.19 M/mcL (4.19-5.50); Red Cell Distribution Width 14.7 % (11.5-14.5); Segmented Neutrophils % 50.9 %; White Blood Count 6.8 K/mcL (4.3-11.1)
[2022-02-25 05:47] LABS: Calcium 9.2 mg/dL (8.6-10.3); Magnesium 1.7 mg/dL (1.6-2.6); Potassium 3.4 mEq/L (3.5-5.1)
[2022-02-25] MEDS: amLODIPine 5 MG TABLET PO SCH (09:36)
[2022-02-25] MEDS: *HR* Buprenorphine HCl 8 MG TAB.SUBL SL SCH (09:36)
[2022-02-25] MEDS: atenoloL 25 MG TABLET PO SCH (09:36)
[2022-02-25] MEDS: Nicotine 14 MG PATCH.TD24 TD SCH (09:36)
[2022-02-25] MEDS: Magnesium Oxide 400 MG TABLET PO SCH (14:34)
[2022-02-25] MEDS: Sennosides 8.6 MG TABLET PO SCH (21:12)
[2022-02-26] MEDS: ceFAZolin 2,000 MG in 0.9 % Sodium Chloride 100 ML IVPB SCH ×2 (05:14→11:53)
[2022-02-26] MEDS: Nicotine 14 MG PATCH.TD24 TD SCH (08:01)
[2022-02-26] MEDS: *HR* Buprenorphine HCl 8 MG TAB.SUBL SL SCH (08:01)
[2022-02-26] MEDS: amLODIPine 5 MG TABLET PO SCH (08:01)
[2022-02-26] MEDS: Magnesium Oxide 400 MG TABLET PO SCH (08:01)
[2022-02-26] MEDS: atenoloL 25 MG TABLET PO SCH (08:01)
[2022-02-26 11:03] VITALS: BP 128/87; PULSE 75; TEMP 98.3; O2SAT 94
[2022-02-26] MEDS ORDERED: polyethylene glycoL 3350 17 GM POWD.PACK PO PRN (11:03)
[2022-02-26 12:54] LABS: Influenza A PCR Negative (Negative); Influenza B PCR Negative (Negative); Resp. Syncytial Virus PCR Negative (Negative)
[2022-02-26 12:56] LABS: SARS-CoV-2 by PCR (In House) Negative (Negative)
== END 2022-02-26 17:55 ==
LOC: EMEROOARM 13:03 → INTOOBSV 02-21 06:51 → 2ANU 02-21 06:51 → SUATTDRO 02-21 06:51 → 2ANU 02-21 07:46
PROVIDERS: ADMIT Internal Medicine; ATTEND Pharmacist